=== PATIENT | male | born 1985 | race African-American/Black ===

== ENCOUNTER 2024-05-22 04:46 | Outpatient (CLI) | payer OTHER, SELFPAY | END 2024-05-22 04:47 | disposition home or self-care (01) | PROVIDERS: Visit Provider Family Medicine | DX: R45.851 Suicidal ideations (principal) | CPT/HCPCS: A0425; A0429 ==

== ENCOUNTER 2024-05-22 05:18 | Emergency (ER) | payer OTHER, SELFPAY ==
[2024-05-22 05:33] VITALS: BP 166/109; PULSE 92; RESP 16; TEMP 37.7; O2SAT 98
[2024-05-22] MEDS: LORazepam 1 MG TABLET PO (06:00)
[2024-05-22] MEDS: OLANZapine 5 MG TAB.RAPDIS 10 MG PO (06:00)
--- OUTSIDE RECORDS SUMMARY | 2024-05-22 06:35 | XMS_ITS | Clinical Summary ---
Author Organization [employer] Address [address] [place] [address] Care Team Providers Care Picker Tender Name Role Phone Radha Condon MD Primary Care Provider + [phone] Allergies No known active allergies Medications cholecalciferol (VITAMIN D3) 1,000 unit tablet Take 1,000 units by mouth once daily. 04/12/2024 Active cholecalciferol (VITAMIN D3) 1,000 unit tabletIndicatio ns:Vitamin D deficiency Take 1 Tablet (1,000 units) by mouth once daily. 30 Tablet 04/21/2024 Active hydrOXYzine HCL (ATARAX) 25 mg tabletIndicatio ns:Mood disorder Take 1 Tablet (25 mg) by mouth every 4 hours if needed for Anxiety. 60 Tablet 04/21/2024 10:04 AM AIR CONDITIONING ENGINEER 04/20/2024 Active melatonin 5 mg tab tabletIndicatio ns:Mood disorder Take 1 Tablet (5 mg) by mouth at bedtime. 30 Tablet 04/20/2024 Active FLUoxetine (PROZAC) 40 mg capsuleIndicati ons:Mood disorder Take 1 Capsule (40 mg) by mouth once daily in the morning. 30 Capsule 04/21/2024 10:04 AM AIR CONDITIONING ENGINEER 04/21/2024 Active OLANzapine (ZYPREXA) 20 mg tabletIndicatio ns:Mood disorder,Psycho active substance-induc ed psychosis (HC) Take 1 Tablet (20 mg) by mouth at bedtime. 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 Mood disorder 04/18/2024 Stimulant use disorder 04/18/2024 Encounters Date Type Department Care Team Description 04/17/2024 3:27 PM AIR CONDITIONING ENGINEER - 04/21/2024 1:15 PM AIR CONDITIONING ENGINEER Hospital Encounter [facility] [address] [facility] [place] [address] Group, Psychiatrists Call Geraldo Bah DO Berg, Nicole E, NP Mood disorder (Primary Dx); Psychoactive substance-induced psychosis (HC); Stimulant use disorder; Vitamin D deficiency Discharge Disposition: Home Self Care 04/17/2024 1:16 AM AIR CONDITIONING ENGINEER - 04/17/2024 2:27 PM AIR CONDITIONING ENGINEER Emergency [facility] [address] [place] [address] Sveta Lozano MD Ball, aVnessa Valle MD Delusions (HC) (Primary Dx) Discharge Disposition: Crit Acc Hosp w Planned Readmission 04/17/2024 Travel from Last 3 Months Social History Tobacco Use Types Packs/Day Years Used Date Smoking Tobacco: Every Day Cigarettes Tobacco Cessation:Ready to Q uit: No; Counseling Given: No Alcohol Use Standard Drinks/Week Comments Yes 0.8 (1 standard drink = 0.6 oz p ure alcohol) Social Connections Answer Date Recorded Do you often feel lonely or isolated from those around you? 0 04/17/2024 Financial Resource Strain Answer Date R ecorded Difficulty of Paying Living Expenses 3 04/17/2024 Difficulty of Paying Living Expenses Not on file 04/17/2024 Food Insecurity Answer Date Recorded Do you worry your food will run out before you are able to buy more? 1 04/17/2024 Transportation Needs Answer Date Record ed Does lack of transportation keep you from medica l appointments? 1 04/17/2024 Does lack of transportation keep you from work, meetings or getting things that you need? 1 04/17/2024 Housing Stability Answer Date Recorded What is your housing situation today? 1 04/17/2024 Interpersonal Safety Answer Date Record ed Are you being hit, kicked, p ushed or yelled at (see row info)? No 04/17/2024 Interpersonal Safety Abuse 12 - 18 Not on file 04/17/2024 Interpersonal Safety Ambulatory Vulnerability No t on file 04/17/2024 Utilities Answer Date Recorded Do you have trouble paying f or utilities (for example, heat, electricity, water, phone)? 1 04/17/2024 Sex and Gender Information Value Date Recorded Sex Assigned at Not on file Legal Sex Male 7:15 AM AIR CONDITIONING ENGINEER Gender Identity Not on file Sexual Orientation Not on file Obstetrics History Last Filed Vital Signs Vital Sign Reading Time Taken Comments Blood Pressure 108/80 04/21/2024 9:00 AM AIR CONDITIONING ENGINEER Pulse 76 04/21/2024 9:00 AM AIR CONDITIONING ENGINEER Temperature 36.6 C (97.9 F) 04/21/2024 9:00 AM AIR CONDITIONING ENGINEER Respiratory Rate 16 04/21/2024 9:00 AM AIR CONDITIONING ENGINEER Oxygen Saturation 98% 04/21/2024 9:00 AM AIR CONDITIONING ENGINEER Inhaled Oxygen Concentration - - Weight 73.9 kg (163 lb) 04/17/2024 1:22 AM AIR CONDITIONING ENGINEER Height 170.2 cm (5' 7) 04/17/2024 1:22 AM AIR CONDITIONING ENGINEER Body Mass Index 25.53 04/17/2024 1:22 AM AIR CONDITIONING ENGINEER Plan of Treatment Health Maintenance Due Date Last Done Comments Tdap 10/27/1994 Depression screening for age 12+ 1995 BMI (ht and wt on same day) for age 18+ 10/27/2001 Hepatitis C screening for age 18-79 10/27/2001 Pneumococcal series for age 6-49 (1 of 2 - PCV) 2002 Tetanus booster 2003 Lipids for age 35-44 10/27/2018 COVID-19 vaccine series ( season) Influenza for age 9-49 11/21/2023 HIV for age 15-65 Completed 04/19/2024 Procedures Procedure Name Priority Date/Time Associated Diagnosis Comments TREPONEMA PALLIDUM Today 04/19/2024 8: 30 AM AIR CONDITIONING ENGINEER ANTI HIV 1/2 Today 04/19/2024 8:30 AM AIR CONDITIONING ENGINEER DRUG SCREEN RAPID URINE INHOUSE Today 04/18/2024 4:47 PM AIR CONDITIONING ENGINEER from Last 3 Months Results * TREPONEMA PALLIDUM (04/19/2024 8:30 AM AIR CONDITIONING ENGINEER) TREPONEMA PALLIDUM Non-Reacti ve Non-Reacti ve 04/19/2024 10:56 AM AIR CONDITIONING ENGINEER [facility] Blood BLOOD SPECIMEN / Unknown Butterfly / Unknown 04/19/2024 8:30 AM AIR CONDITIONING ENGINEER 04/19/2024 8:39 AM AIR CONDITIONING ENGINEER Mariah Marsha Pierce CARETAKER RESORT SEND OUTS Final R esult Performing Organization Address City/[facility] Co de Phone Number [facility] [address] [place] [address], * ANTI HIV 1/2 (04/19/2024 8:30 AM AIR CONDITIONING ENGINEER) Pathologist [facility] HIV-1/HIV-2 SCREEN Non-Reacti ve Non-Reacti ve 04/19/2024 10:52 AM AIR CONDITIONING ENGINEER [facility] Comment:HIV-1 p24 and HIV-1/ HIV-2 Ab Not Detected. Blood BLOOD SPECIMEN / Unknown Butterfly / Unknown 04/19/2024 8:30 AM AIR CONDITIONING ENGINEER 04/19/2024 8:39 AM AIR CONDITIONING ENGINEER Mariah Pierce NP SEND OUTS Final R esult Performing Organization Address City/[facility] Co de Phone Number [facility] [address] [place] [address], * (ABNORMAL) DRUG SCREEN RAPID URINE INHOUSE (04/18/2024 4:47 PM AIR CONDITIONING ENGINEER) Pathologist [facility] THC METABOLITES,TOYA L Not Detected Not Detected 04/18/2024 6:04 PM AIR CONDITIONING ENGINEER [facility] PCP,QUAL Not Detected Not Detected 04/18/2024 6:04 PM AIR CONDITIONING ENGINEER [facility] COCAINE,QUAL Not Detected Not Detected 04/18/2024 6:04 PM AIR CONDITIONING ENGINEER [facility] METHAMPHETAMINE , QUALITATIVE Not Detected Not Detected 04/18/2024 6:04 PM AIR CONDITIONING ENGINEER [facility] OPIATES,QUAL Not Detected Not Detected 04/18/2024 6:04 PM AIR CONDITIONING ENGINEER [facility] AMPHETAMINE, QUALITATIVE Non-negative , consider further testing if indicated(A) Not Detected 04/18/2024 6:04 PM [facility] BENZODIAZEPINES ,QUAL Not Detected Not Detected 04/18/2024 6:04 PM [facility] TRICYCLICS,QUAL Not Detected Not Detected 04/18/2024 6:04 PM [facility] METHADONE, QUALITATIVE Not Detected Not Detected 04/18/2024 6:04 PM [facility] BARBITURATES,QU AL Not Detected Not Detected 04/18/2024 6:04 PM [facility] OXYCODONE, QUALITATIVE Not Detected Not Detected 04/18/2024 6:04 PM [facility] BUPRENORPHINE, QUALITATIVE Not Detected Not Detected 04/18/2024 6:04 PM [facility] Urine URINE SPECIMEN / Unknown Non-Blood / Unknown 04/18/2024 4:47 PM [facility] 04/18/2024 5:26 PM [facility] - 04/18/2024 6:04 PM [facility] Please Note: This is a screening test only, all results are unconfirmed and should be used for medical purposes only. Unconfirmed results must not be used for non-medical purposes (e.g., employment testing, legal testing). Suggest analyte specific confirmation for all non-negative results. Specimens will be held for 24 hours if additional testing is needed. The following threshold concentrations are used for this analysis: Drug Screening Threshold Buprenorphine 10 ng/mL PCP 25 ng/mL THC Metabolites 50 ng/mL *Opiates 100 ng/mL Oxycodone 100 ng/mL Cocaine 150 ng/mL Benzodiazepines 150 ng/mL Methadone 200 ng/mL Barbiturates 200 ng/mL Tricyclic Antidepressants 300 ng/mL Amphetamines 500 ng/mL Methamphetamines 500 ng/mL *Includes related compounds: Codeine 50 ng/mL Heroin 100 ng/mL Morphine 100 ng/mL Hydrocodone 400 ng/mL Hydromorphone 800 ng/mL Venlafaxine (Effexor) is a known cross reactant in the PCP assay. If clinically indicated, order PCP confirmation. Geraldo Bah DO URINE Final R esult [facility] SENDOUT [place] ZIP [address] [address] [place] [address] from Last 3 Months Insurance [phone] [employer] [place] [id number] [facility] Advance Directives * Full Code (Latest Code Status on File) Date Activated Date Inactivated Comments 04/18/2024 8:11 AM 04/21/2024 3:54 PM Question Answer Comments Code Status Discussion: Reviewed Preferences * Full Code Date Activated Date Inactivated Comments 04/17/2024 3:49 PM 04/18/2024 8:11 AM Question Answer Comments Code Status Discussion: Unable to Assess Preferences, Provider to review later Care Teams Picker Tender Relationship Specialty Start Date End Date Radha Condon MD 0 [facility] [place] [address] PCP - General 04/17/24
--- OUTSIDE RECORDS SUMMARY | 2024-05-22 06:37 | XMS_ITS | Encounter Summary ---
Author Organization [employer] Address [address] [place] [address] Care Team Providers Care Stope Miner Name Role Phone Radha Condon Primary Care Provider [phone]- [phone] Encounter Details Date Type Department Care Team (Late st Contact Info) Description 04/21/2024 Notes/Orders [facility] [address] [place], [place] [id number] Estephanie Woods, OTR/L [address] [facility] [address] [place] [id number] Social History Tobacco Use Types Packs/Day Years Used Date Smoking Tobacco: Unknown Alcohol Use Standard Drinks/Week Comments Yes 0 (1 standard drink = 0.6 oz pur e alcohol) Humiliation, Afraid, Rape, and Kick questionnair e Answer Date Recorded Fear of Current or Ex-Partner Not on file Within the last year, have y ou been humiliated or emotionally abused in other ways by your partner or ex-partner? No 11/26/2023 Within the last year, have y ou been kicked, hit, slapped, or otherwise physically hurt by your partner or ex-partner? No 11/26/2023 Within the last year, have y ou been raped or forced to have any kind of sexual activity by your partner or ex-partner? No 11/26/2023 Sex and Gender Information Value Date Recorded Sex Assigned at Not on file Legal Sex Male 4:56 AM CDT Gender Identity Not on file Sexual Orientation Not on file documented as of this encounter Progress Notes * Estephanie Woods OTR/Monika - 04/21/2024 4:58 PM CST [facility] Patient failed to attend his hand therapy appointment today. He was supposed to transition from PIPcast to splint and start moving the ring finger PIP joint today (short arc motion to start). Therapist attempted to call him. No answer and unable to leave voicemail message. JEN MurphyR/Monika, CHT #[id number] S OPERATIONS CONSULTANT documented in this encounter Plan of Treatment Upcoming Encounters Date Type Department Care Team (Late st Contact Info) Description 05/26/2024 8:15 AM SALES OPERATIONS CONSULTANT Appointment Specialty [facility] [address] [place] [address]. [place] [address] Kimmie Fuentes MD [address] [place] [address] 06/05/2024 9:00 AM CDT Appointment [facility] [address] [place] [address] Elizabeth Fisher PA-C [address] [place] [address] documented as of this encounter Visit Diagnoses Not on filedocumented in this encounter Care Teams Stope Miner Relationship Specialty Start Date End Date Radha Condon MBBS 0 [facility] [place] [id number] PCP - General Internal Medicine 11/18/23 documented as of this encounter
--- OUTSIDE RECORDS SUMMARY | 2024-05-22 06:37 | XMS_ITS | Encounter Summary ---
Author Organization [employer] Address [address] [place] [address] Care Team Providers Care Registered Vascular Technologist (Rvt) Name Role Phone Radha Condon Primary Care Provider [phone]- [phone] Encounter Details Date Type Department Care Team (Latest Contact Info) Description 11/29/1996 Office Visit Pablo Bowman MD [address] [place], [place] [address] Social History Tobacco Use Types Packs/Day Years Used Date Smoking Tobacco: Never Assessed Sex and Gender Information Value Date Recorded Sex Assigned at Not on file Legal Sex Male 4:56 AM CDT Gender Identity Not on file Sexual Orientation Not on file documented as of this encounter Progress Notes * Pablo Bowman - 11/29/1996 12:00 AM CDTS: Here with concern about a bump on the left knee. Seems to be getting bigger and more painful when he plays basketball. First noticed last week. No med allergies. No other major problems. O: Weight 94 lbs. He does have good flexion and extension of both knees. There is some swelling below the left knee in the tibial tuberosity region. There's no effusion, no redness. Walking without a limp. A: Adriana-Schlatter's condition. P: Natural history of this discussed. Intermittent nature of pain discussed. Cold packs, ibuprofen could be used. Will need to intermittent decrease activities that cause a lot of forceful kicking or jumping maneuvers at the knee. Typically with this type of condition x-ray is not useful in guiding management and so therefore it was elected not to expose him to the radiation of an x-ray today. If he was limping more, if he was developing other changes, if he was developing redness or other problems to call back and that may change our opinion. Note given for school indicating that since he does have this condition, he should be allowed to rest if knee pain develops. cc: documented in this encounter Plan of Treatment Upcoming Encounters Date Type Department Care Team (Late st Contact Info) Description 05/26/2024 8:15 AM TINNING MACHINE SET UP OPERATOR Appointment Specialty [facility] [address] [place] [address]. [place] [address] Kimmie Fuentes MD [address] [place] [address] 06/05/2024 9:00 AM CDT Appointment [facility] [address] [place] [address] Elizabeth Fisher PA-C [address] [place] [address] documented as of this encounter Visit Diagnoses Not on filedocumented in this encounter Care Teams Registered Vascular Technologist (Rvt) Relationship Specialty Start Date End Date Radha Condon MBBS [address] [place] [address] [place] [id number] PCP - General Internal Medicine 11/18/23 documented as of this encounter
--- OUTSIDE RECORDS SUMMARY | 2024-05-22 06:37 | XMS_ITS | Encounter Summary ---
Author Organization [employer] Address [address] [place] [address] Care Team Providers Care Training Technician Name Role Phone Radha oCndon Primary Care Provider [phone]- [phone] Encounter Details Date Type Department Care Team (Latest Contact Info) Description 07/17/1996 Office Visit Denise Heck, OCTAVIO, ROUGH RIB GRADER Social History Tobacco Use Types Packs/Day Years Used Date Smoking Tobacco: Never Assessed Sex and Gender Information Value Date Recorded Sex Assigned at Not on file Legal Sex Male 4:56 AM CDT Gender Identity Not on file Sexual Orientation Not on file documented as of this encounter Progress Notes * Denise Heck - 07/17/1996 12:00 AM CDTS. Pao is here because he has had a sore throat, stuffy nose, and some achiness. Little bit of coughing for the past 3 days. Possible temp. Did have a flu shot in December. Past medical history shows pneumonia 7 months. Mother states he has had perhaps some nasal allergies and/or problem with sinus. Mother will forward his records. He has no allergies, no known allergies to medications. O. Nontoxic, perky 10 year old. HEENT is negative except for mild nasal congestion. Throat is not at all red or exudative. ACN's minimally enlarged, minimally tender. Chest is very clear. Abdomen soft, negative. A. Viral syndrome. P. Symptomatic measures. Rapid strep is negative. Recheck at parental discretion. cc: documented in this encounter Plan of Treatment Upcoming Encounters Date Type Department Care Team (Late st Contact Info) Description 05/26/2024 8:15 AM PRODUCTION PLANNER Appointment Special[facility] [address] [place] [address]. [place] [address] Kimmie Fuentes MD [address] [place] [address] 06/05/2024 9:00 AM CDT Appointment [facility] [address] [place] [address] Elizabeth Fisher PA-C [address] [place] [address] documented as of this encounter Visit Diagnoses Not on filedocumented in this encounter Care Teams Training Technician Relationship Specialty Start Date End Date Radha Condon MBBS [address] [facility] [place] [address] PCP - General Internal Medicine 11/18/23 documented as of this encounter
--- OUTSIDE RECORDS SUMMARY | 2024-05-22 06:37 | XMS_ITS | Encounter Summary ---
Author Organization [employer] Address [address] [facility] [place] [address] Care Team Providers Care Financial Health Counselor Name Role Phone Radha Condon Primary Care Provider +1- [phone] Reason for Visit * Reason Comments Hand Problem Encounter Details Date Type Department Care Team (Late st Contact Info) Description 05/12/2024 Telephone [facility] [address] [facility] [place] [place] [address] Estephanie Woods, OTR/L [address] [place] [address] Hand Problem Social History Tobacco Use Types Packs/Day Years [...] on file documented as of this encounter Nursing Notes * Estephanie Woods OTR/L - 05/12/2024 11:19 AM CST [facility] Patient failed to attend his appointment today. Therapist called, no answer, left message. Remindedof appointment next Wednesday and also reminded of 48 hour cancellation policy. Estephanie Woods MOTR/Monika, CHT #[id number] E MANGER documented in this encounter Plan of Treatment Upcoming Encounters Date Type Department Care Team (Late st Contact Info) Description 05/26/2024 8:15 AM GARDE MANGER Appointment [facility] [address] [place] [address]. [place] [address] Kimmie Fuentes MD [address] [place] [address] 06/05/2024 9:00 AM CDT Appointment [facility] [address] [place] [address] Elizabeth Fisher PA-C [address] [place] [address] documented as of this encounter Visit Diagnoses Not on filedocumented in this encounter Care Teams Financial Health Counselor Relationship Specialty Start Date End Date Radha Condon MBBS [address] [place] [address] [place] [address] PCP - General Internal Medicine 11/18/23 documented as of this encounter
--- OUTSIDE RECORDS SUMMARY | 2024-05-22 06:37 | XMS_ITS | Encounter Summary ---
Author Organization [employer] Address [address] [place] [address] Care Team Providers Care Nurse Practitioner Name Role Phone Radha Condon Primary Care Provider [phone]- [phone] Encounter Details Date Type Department Care Team (Latest Contact Info) Description 03/05/1998 Office Visit Pablo Bowman MD [address] [place], [place] [address] Social History Tobacco Use Types Packs/Day Years Used Date Smoking Tobacco: Never Assessed Sex and Gender Information Value Date Recorded Sex Assigned at Not on file Legal Sex Male 4:56 AM CDT Gender Identity Not on file Sexual Orientation Not on file documented as of this encounter Progress Notes * Pablo Bowman - 03/05/1998 12:00 AM CSTS. See PE form for summary. Summary 1) Good growth and development. Weight 109#. Height 63 1/2. 2) Incomplete vaccination records. The family does not have any records with them. No records available from the school today either. He does need physical form today and shots to get back into basketball. Will give the Hepatitis B, dT and MMR vaccine which appear to be due right now. Will return in about 6 weeks for second hepatitis B vaccine and can update other vaccines as needed, if they are not able to document any other old vaccination records to the school or other clinics. Anticipatpory guidance including no smoking discussed. cc: ITY DEVELOPER documented in this encounter Plan of Treatment Upcoming Encounters Date Type Department Care Team (Late st Contact Info) Description 05/26/2024 8:15 AM CLARITY DEVELOPER [facility]ointment [facility] [address] [place] [address]. [place] [address] Kimmie Fuentes MD [address] [place] [address] 06/05/2024 9:00 AM CDT Appointment [facility] [address] [place] [address] Elizabeth Fisher PA-C [address] [place] [address] documented as of this encounter Visit Diagnoses Not on filedocumented in this encounter Care Teams Nurse Practitioner Relationship Specialty Start Date End Date Radha Condon MBBS [address] [facility] [place] [address] PCP - General Internal Medicine 11/18/23 documented as of this encounter
--- OUTSIDE RECORDS SUMMARY | 2024-05-22 06:37 | XMS_ITS | Encounter Summary ---
Author Organization [facility] Address [address] [place] [address]. [place] [address] Care Team Providers Care Terminal Makeup Operator Name Role Phone Radha Condon MD Primary Care Provider Radha Condon MD Unavailable [phone] David Hernandez MD Unavailable [phone] David Hernandez MD Unavailable David Hernandez MD Unavailable [phone] Dorothy Thompson APRN [facility] Unavailable [phone] Encounter Details Date Type Department Care Team (Late st Contact Info) Description 04/17/2024 MyC Medical Advice [facility] Services - Behavioral Service Line [address] [place] [phone] Chun Seth Social History Tobacco Use Types Packs/Day Years Used Date Smoking Tobacco: Former Cigarettes 1.5 21 0 05/11/1999 - 05/29/2020 Smokeless Tobacco: Former Quit: 05/29/2020 Comments:Started at 16 yrs a ge and was on worsening to 20 Cig/day and last smoked around 04/2022 Alcohol Use Standard Drinks/Week Comments Yes 0 (1 standard drink = 0.6 oz pure alcohol) pt report she had 2 shots yesterday PHQ-2 Answer Date Recorded PHQ-2 Score 2 12/01/2023 Adolescent Education Answer Date Record ed Getting School Help Needed Not on file 12/11 Interpersonal Safety Answer Date Record ed Do you feel physically and e motionally safe where you currently live? Yes 10/01/2023 Within the past 12 months, h ave you been hit, slapped, kicked or otherwise physically hurt by someone? No 10/01/2023 Within the past 12 months, h ave you been humiliated or emotionally abused in other ways by your partner or ex-partner? No 10/01/2023 Sex and Gender Information Value Date Recorded Sex Assigned at Not on file Legal Sex Male 4:50 AM MATCH UP WORKER Gender Identity Male 06/04/2022 7:03 PM CDT Sexual Orientation Not on file documented as of this encounter Plan of Treatment Not on file documented as of this encounter Visit Diagnoses Not on filedocumented in this encounter Additional Health Concerns Assessment Noted Time PHQ-9 Depression Total Score: 5 11/30/19 24 9:54 PM CDT documented as of this encounter Care Teams Terminal Makeup Operator Relationship Specialty Start Date End Date Radha Condon MD [address] [place] [address] [place] [address] PCP - General Internal Medicine 11/07/20 Radha Condon MD [address] [place] [address] [place] [address] Assigned PCP 11/10/20 David Hernandez MD [address] [place] [address] Genetics, Clinical 07/27/22 David Hernandez MD [address] [place] [address] Genetics, Clinical 07/27/22 David Hernandez MD [address] [place] [address] Assigned Pediatric Specialist Provider 09/12/23 05/13/24 Dorothy Thompson APRN BRAKE REPAIR[employer] [address] [place] [address] Assigned Behavioral Health Provider 05/14/24 documented as of this encounter
--- OUTSIDE RECORDS SUMMARY | 2024-05-22 06:37 | XMS_ITS | Encounter Summary ---
Author Organization [facility] Address [address] [place] [address]. [place] [address] Care Team Providers Care Manager Ct Name Role Phone Radha Condon MD Primary Care Provider Radha Condon MD Unavailable [phone] David Hernandez MD Unavailable [phone] David Hernandez MD Unavailable [phone] David Hernandez MD Unavailable [phone] Dorothy Thompson CLERICAL SUPPORT SPECIALIST [facility] Unavailable [phone] Encounter Details Date Type Department Care Team (Late st Contact Info) Description 11/13/2022 [facility] [place] [facility] [address] [facility] [address],[place] [phone] Ryann Oleary Social History Tobacco Use Types Packs/Day Years [...] yesterday PHQ-2 Answer Date Recorded PHQ-2 Score 0 07/16/2022 Sex and Gender Information Value Date Recorded Sex Assigned at Not on file Legal Sex Male 4:50 AM RN REFERRAL Gender Identity Male 06/04/2022 7:03 PM CDT Sexual Orientation Not on file COVID-19 Exposure Response Date Recorded In the last 10 days, have yo u been in contact with someone who was confirmed or suspected to have Coronavirus/COVID-19? No / Unsure 11/09/2022 1:19 PM CDT documented as of this encounter Plan of Treatment Not on file documented as of this encounter Visit Diagnoses Not on filedocumented in this encounter Additional Health Concerns Infection Onset Date Last Indicated Resolved Time Rule Out COVID-19 09/07/2023 09/07/2023 09/07/2023 1:23 PM CDT COVID-19 09/07/2023 09/07/2023 09/18/2023 11:4 0 PM CDT Assessment Noted Time PHQ-9 Depression Total Score: 2 07/17/19 2:35 PM CDT documented as of this encounter Care Teams Manager Ct Relationship Specialty Start Date End Date Radha Condon MD [address] [place] [address] [place] [address] PCP - General Internal Medicine 11/07/20 Radha Condon MD [address] [place] [address] [place] [address] Assigned PCP 11/10/20 David Hernandez MD [address] [place] [address] Genetics, Clinical 07/27/22 David Hernandez MD [address] [place] [address] Genetics, Clinical 07/27/22 David Hernandez MD [address] [place] [id number] Assigned Pediatric Specialist Provider 09/12/23 05/13/24 Dorothy Thompson APRN WOOLING MACHINE OPERATOR [address] [facility] [place] [address] Assigned Behavioral Health Provider 05/14/24 documented as of this encounter
--- OUTSIDE RECORDS SUMMARY | 2024-05-22 06:37 | XMS_ITS | Encounter Summary ---
Author Organization [facility] Address [address] [place] [address]. [place] [address] Care Team Providers Care Pet Walker Name Role Phone Radha Condon MD Primary Care Provider Radha Condon MD Unavailable David Hernandez MD Unavailable [phone] David Hernandez MD Unavailable David Hernandez MD Unavailable [phone] Dorothy Thompson APRN [facility] Unavailable Encounter Details Date Type Department Care Team (Late st Contact Info) Description 11/13/2022 [facility] [place] [facility] [address] [facility] [place] [phone] David Henrandez MD [address] [place], [place] [id number] Social History Tobacco Use Types Packs/Day Years [...] on file Legal Sex Male 4:50 AM TRANSPORTATION AID Gender Identity Male 06/04/2022 7:03 PM CDT [...] Time PHQ-9 Depression Total Score: 2 07/17/19 23 2:35 PM CDT documented as of this encounter Care Teams Pet Walker Relationship Specialty Start Date End Date Radha Condon MD [address] [place] [address] [place] [address] PCP - General Internal Medicine 11/07/20 Radha Condon MD [address] [place] [address] [place] [address] Assigned PCP 11/10/20 David Hernandez MD [address] [place], [place] [address] MD Yeung, Clinical 07/27/22 David Hernandez MD [address] [place] [address] MD Yeung, Clinical 07/27/22 David Hernandez MD [address] [place] [address] Assigned Pediatric Specialist Provider 09/12/23 05/13/24 Dorothy Thompson APRN [facility] [address] [place] [address] Assigned Behavioral Health Provider 05/14/24 documented as of this encounter
--- OUTSIDE RECORDS SUMMARY | 2024-05-22 06:37 | XMS_ITS | Encounter Summary ---
Author Organization [facility] Address [address] [place] [address] Care Team Providers Care Medical Language Specialist Name Role Phone [facility] Primary Care Provider No Ref-Primary, Physician Primary Care Provider Radha Condon MD Primary Care Provider [phone] Radha Condon MD Unavailable [phone] David Hernandez MD Unavailable [phone] David Hernandez MD Unavailable [phone] David Hernandez MD Unavailable [phone] Dorothy Thompson SOLAR ENERGY SYSTEMS DESIGNER BOMB LOADER Unavailable Encounter Details Date Type Department Care Team (Latest Contact Info) Description 1985 External Order Results [facility] [address] [place] [address] Outside, Provider Non-traumatic rhabdomyolysis; Encounter for nonprocreative genetic counseling Social History Tobacco Use Types Packs/Day Years Used Date Smoking Tobacco: Never Assessed Sex and Gender Information Value Date Recorded Sex Assigned at Not on file Legal Sex Male 4:50 AM SENIOR ENLISTED ADVISOR Gender Identity Male 06/04/2022 7:03 PM CDT Sexual Orientation Not on file documented as of this encounter Plan of Treatment Not on file documented as of this encounter Procedures Procedure Name Priority Date/Time Associated Diagnosis Comments LABORATORY MISCELLANEOUS ORDER Routine 12/19/2022 12:00 AM CDT Non-traumatic rhabdomyolysis Encounter for nonprocreative genetic counseling documented in this encounter Results * (ABNORMAL) Other Laboratory; [facility]; Sendout Rhabdomyolysis and Metabolic Myopathy Panel to [facility] (Laboratory Miscellaneous Order) (12/19/2022 12:00 AM CDT) Buccal swab 12/19/2022 us David Hernandez MD LAB - BLOOD ORDERABLES Final Result NISHANTEZE PFT documented in this encounter Visit Diagnoses Diagnosis Non-traumatic rhabdomyolysis Encounter for nonprocreative genetic counseling documented in this encounter Additional Health Concerns Infection Onset Date Last Indicated Resolved Time Rule Out COVID-19 10/03/2019 10/03/2019 10/04/2019 10:55 PM CDT Rule Out COVID-19 01/16/2020 01/16/2020 01/17/2020 3:31 PM CDT COVID-19 10/24/2020 10/24/2020 11/14/2020 11:3 9 PM CDT Recovered COVID 10/29/2020 10/29/2020 01/12/2021 1 1:41 PM CDT Recovered COVID 07/01/2022 07/01/2022 09/14/2022 1 1:39 PM CDT Rule Out COVID-19 09/07/2023 09/07/2023 09/07/2023 1:23 PM CDT COVID-19 09/07/2023 09/07/2023 09/18/2023 11:4 0 PM CDT documented as of this encounter Care Teams Medical Language Specialist Relationship Specialty Start Date End Date [facility] PCP - General 07/05/11 10/02/19 No Ref-Primary, Physician PCP - General 10/03/19 11/06/20 Radha Condon MD [address] [place] [address] [address] [place], [place] [address] PCP - General Internal Medicine 11/07/20 Radha Condon MD [address] [facility] [place] [address] Assigned PCP 11/10/20 David Hernandez MD [address] [place] [address] Genetics, Clinical 07/27/22 David Hernandez MD [address] [place] [address] Genetics, Clinical 07/27/22 [place] [address] [place] [address] Assigned Pediatric Specialist Provider 09/12/23 05/13/24 Dorothy Thompson APRN BOMB LOADER [address] [place] [address] Assigned Behavioral Health Provider 05/14/24 documented as of this encounter
--- OUTSIDE RECORDS SUMMARY | 2024-05-22 06:37 | XMS_ITS | Encounter Summary ---
Author Organization [facility] Address [address] [place] [address] Care Team Providers Care Reaming Machine Operator Name Role Phone Radha Condon Primary Care Provider [phone] Reason for Visit * Reason Comments Follow-up Encounter Details Date Type Department Care Team (Late st Contact Info) Description 05/08/2024 10:00 AM SENIOR INFORMATICA DEVELOPER Office Visit [facility] [address] [place] [address] Elizabeth Fisher PA-C [address] [place] [address] Partial traumatic amputation of left index finger through phalanx, subsequent encounter (HRC) (Primary Dx); Closed displaced fracture of distal phalanx of left ring finger with delayed healing, subsequent encounter; Work related injury Social History Tobacco Use Types Packs/Day Years [...] as of this encounter Progress Notes * Elizabeth Fisher PA-C - 05/08/2024 10:00 AM CST Images from the original note were not included. 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 right-hand dominant male presenting to occupational medicine today for evaluation of partial amputation of the left index finger and avulsion fracture of the phalanx of the left ring finger starting on 11/17/2023. The patient was last seen in Occupational Medicine Clinic on 03/20/2024 by myself. Please refer to previous notes for details of his presentation and course. Since last visit: Continues with hand therapy Today, the patient reports that his left hand is continuing to do better. He also feels better overall. He notes that he started an antidepressant, which has helped with his mental health, which was significantly worsened following his injury. However, he notes that the mmeox-oz-slioji of his left fingers have not significantly improved in the past few months. Pain is 4/10 in severity and sharp in nature, and most often occurs when pressure is applied to the tip of the left index finger, or hisfingers are flexed or extended forcibly. Rest, heat, breaks do help alleviate pain. He has a splinton the ring finger of the left hand, which he wears approximately 80% of the time. He does take it off occasionally to do aetru-zl-xtfrkc exercises. Pain is exacerbated by heavy lifting, cold air, extensive pressure, attempts at making a normal fist, and attempts of lifting anything heavy in the left hand. Please see below for MACI and summary of treatment MACI: Mr. Cherry was using a drill at work when his glove got caught in the drill in his 2nd and 3rdfingers were injured. All fingers of the left hand were initially pointing in different directions,but realigned by the time he presented to the emergency department. The distal tip of the left pointer finger was amputated, and he did place the fingertip on ice prior to being transported to the emergency department. 11/18/2023: Seen in [facility] Emergency Department. Notable amputation to the distal pointerfinger of the left hand and laceration to the medial aspect of the 3rd finger of the left hand. Radiographs were performed in hand surgery was consulted. Tetanus was updated. Hand surgery performed the amputation revision in the emergency department, as well as laceration repair. Discharged on Keflex. 11/20/2023: Seen in [facility] Emergency Department requesting pain management assistance andwound care. Discussed pain management, prescription for oxycodone was written, and referral placed to plastic surgeries for follow up. 11/26/2023: [facility] in [facility] Department for evaluation of continued pain to the left hand.Noted that he took his Keflex every 4 hours and ran out after 5 days, as opposed to taking it 4 times daily for 7 days. No infection noted. Given Toradol, repeat digit block, and additional antibiotics, as well as a limited amount of oral oxycodone per Plastic surgery recommendations. 11/29/2023: Seen in clinic by hand surgery. Recommended continue daily cleansing of the finger withwarm water and soap, applying antibiotic ointment, Xeroform, soft dressing, and an Alumafoam splint. Left ring finger placed in a dorsal blocking splint. 12/06/2023: Seen for follow up in hand surgery. Recommended to start occupational therapy for hand exercises and custom brace. Recommendation to continue cleaning and covering the amputation site. 12/22/2023: Seen for follow up in hand surgery. Notable improvement in symptoms. Recommended to discontinue finger splint on ring finger, continue to work with hand therapy on motion exercises and scar and edema management. Silicone tip offered for the amputation. 01/19/2024: Ultrasound of left ring finger performed. Intact FDS and FDP tendons. Some concern for chronic tear of the extensor tendon overlying the proximal phalanx. 01/24/2024: Seen in hand surgery for follow up. Noting ring finger most bothersome in regards to tenderness and stiffness. Recommendation to continue to work with hand therapy. Order placed for work hardening. 03/08/2024: Seen for follow up in hand surgery. Noting improvement in physical symptoms. Referral placed to occupational medicine. Work note written for light duty or desk top duty with a lifting restriction of 10 lb for the left hand. Behavioral health consult was placed given patient mood suffering from trauma related to the injury. 03/20/2024: Seen for initial appointment in occupational medicine. Noting ongoing pain in all fingers of the left hand, worse so with the PIP joint of the left index finger. Pain is 5/10 in severity and sharp and achy in nature. Pain is exacerbated by heavy lifting, excessive flexion of the fingersof the left hand, and repetitive movements of the left hand. He feels he is at about 60% of his pre-injury ability. He states he has done some very light duty tasks for his personal business, and notes that he is needing to relearn how to do certain tasks. For example, he has been relearning how toproperly hold power tools in his left hand. He notes ongoing mood changes related to his work-related injury. He has been having significant mental distress both due to the injury and the prolonged recovery. He has been seen for an intake at [facility], and they did recommend additional sessions. 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 Adverse Drug Reactions: Other Social History: Marital status: Single. Mr. Cherry reports current alcohol use. He reports current drug use. Drug: Methamphetamines. Review of Systems (cardiac, neurologic, respiratory, endocrine, gastrointestinal, genito-urinary, rheumatologic, integumentary, constitutional, sensory, sensory, hematologic, coagulation, immunoregulatory, psychological) has been reviewed by me. Pertinent findings except as above in HPI: None and is otherwise negative. Paper intake questionnaire reviewed . Objective: General: Mr. Cherry is a male who is in no acute distress Head: normocephalic, facial movements symmetric, expression animated, appropriate, Without scarring or obvious asymmetry Eyes: movements are normal with pupils normal in diameter in ambient light and with normal colored sclerae. ENT: no obvious difficulty hearing, normal lip color. Respiratory: normal configuration of chest and abdomen and normal breathing, without use of accessory muscles. Cardiovascular: No obvious pallor. Neck: No external deformity. Back: Normal to inspection. Musculoskeletal: Seated posture and movement are normal. No difficulty standing up from a chair. Upper extremities: No amputations or no gross abnormalities of movement, clubbing, pallor, no joint deformities. No swelling or edema. Left Hand - thumb, index, middle, ring, and small: - Dominance: Right - Inspection: no swelling, no erythema, no ecchymosis. Thenar eminence muscle contours: Normal, Hypothenar eminence muscle contour: Normal. He is missing the distal tip of the left index finger. The left ring finger is casted over the PIP joint. PIP joints appear swollen across digits 2 through 5 on the left hand. - Palpation: Mildly tender diffusely, pain more pronounced with flexion/extension of the fingers - ROM: Flexion: impaired. Extension: impaired. Abduction: full.Opposition: full, Pronation: full, Supination: full. - Strength: Hand college president: 4, Finger flexion: 4, Finger extension: 5 (norm), - Vascular: Warm, well perfused, cap refill in digits < 2 secs - Neuro: Sensation to light touch over the radial, ulnar, and median nerve distributions are normaland symmetric. Lower extremities: Normal positioning and appearance of both legs with no asymmetry of spontaneous motion. No swelling or edema. Skin: intact visible skin Neurological: Alert, coherent, with normal speech articulation and content. Psychiatric: Affect normal, pleasant and cooperative. Imaging: XR Finger Lt Ring 2+ Views Details Reading Physician Reading Date Result Priority Umair Jessica DO [phone] 12/23/2023 Narrative & Impression EXAM: XR FINGER LT RING 2+ VIEWS, XR FINGER LT MIDDLE 2+ VIEWS [facility] DATE: 12/22/2023 INDICATION: Fracture follow up, Unspecified fracture of left wrist and h COMPARISON: 12/06/2023 IMPRESSION: Partial progressive incomplete healing of a comminuted mildly displaced fracture of thefourth distal phalanx. Partial amputation of the second digit through the head/neck of the middle phalanx. 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 Assessment: 1. 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 Closed displaced fracture of distal phalanx of left ring finger with delayed healing, subsequentencounter 3. Work related injury Plan: Pao Cherry is a 38 y.o. right-hand dominant male presenting to occupational medicine today for evaluation of partial amputation of the left index finger and avulsion fracture of the phalanx of the left ring finger starting on 11/17/2023. Based on his history, this is a work-related injury. He hasbeen seen and treated by Orthopedics and hand therapy. Orthopedics has transferred responsibility for work restrictions to Occupational Medicine at this time. Recommend the following: Continue with behavioral therapy. Mood changes appear to have been significant based on initial interview with patient, and he would benefit greatly from continued talk therapy Follow up with hand specialist in orthopedics as scheduled If orthopedics degrees, could start work hardening after his next 2 sessions of hand therapy. However, orthopedics should have final say in this. Work restrictions as below Medications: Medications Prescribed this Visit None Discussed common medication side effects. Referral: Cont hand therapy Work Restrictions: Per workability of 05/08/2024 Upper Extremity Abilities: [] RIGHT [x] LEFT [] BOTH [x] No Lifting > 25 lbs with the affected limb Employee is able to: Never Rare <10% Occas 11-33% Freq 34-66% Cont 67-100% Light grasp [] [] [] [x] [] Heavy grasp [] [] [x] [] [] Repetitive wrist motion [] [] [] [] [x] Torque/crimp [] [] [x] [] [] Keyboard / write [] [] [] [] [x] Operate power tools [] [] [] [x] [] Pinch [] [x] [] [] [] - Must be allowed to attend medical appointments - Occasional working at positions of height Followup: 6 weeks, sooner if needed The patient was discharged ambulatory and in stable condition. Elizabeth Fisher PA-C Occupational Medicine I spent a total of 30 minutes with this patient more than 50% in face to face counseling and care coordination. This note was created using templating and voice recognition software (FL3XX Direct) which may result in unintentional word substitutions. OR INFORMATICA DEVELOPER documented in this encounter Plan of Treatment Upcoming Encounters Date Type Department Care Team (Late st Contact Info) Description 05/26/2024 8:15 AM SENIOR INFORMATICA DEVELOPER Appointment [facility] [place] [address] [facility] [address] [place] [address]. [place] [address] Kimmie Fuentes MD [address] [place] [address] 06/05/2024 9:00 AM CDT Appointment [facility] [address] [place] [address] Elizabeth Fisher PA-C [address] [place] [address] documented as of this encounter Visit Diagnoses Diagnosis Partial traumatic amputation of left index finger through phalanx, subsequent encounter (HRC)- Primary Closed displaced fracture of distal phalanx of left ring finger with delayed healing, subsequent encounter Work related injury Injury, other and unspecified, unspecified site documented in this encounter Care Teams Reaming Machine Operator Relationship Specialty Start Date End Date Radha Condon MBBS [address] [place] [address] [place] [address] PCP - General Internal Medicine 11/18/23 documented as of this encounter
--- OUTSIDE RECORDS SUMMARY | 2024-05-22 06:37 | XMS_ITS | Encounter Summary ---
Author Organization [facility] Address [address] [facility] [place] [address] Care Team Providers Care Inspector Salvage Name Role Phone Radha Condon MD Primary Care Provider [phone] Radha Condon MD Unavailable [phone] David Hernandez MD Unavailable [phone] David Hernandez MD Unavailable [phone] David Hernandez MD Unavailable [phone] Encounter Details Date Type Department Care Team (Latest Contact Info) Description 05/01/2024 Travel Social History Tobacco Use Types Packs/Day Years [...] on file Legal Sex Male 4:50 AM CORD SPLICER Gender Identity Male 06/04/2022 7:03 PM CDT Sexual Orientation Not on file documented as of this encounter Plan of Treatment Not on file documented as of this encounter Visit Diagnoses Not on filedocumented in this encounter Additional Health Concerns Assessment Noted Time PHQ-9 Depression Total Score: 5 11/30/19 24 9:54 PM CDT documented as of this encounter Care Teams Inspector Salvage Relationship Specialty Start Date End Date Radha Condon MD [address] [place] [address] [place] [id number] PCP - General Internal Medicine 11/07/20 Radha Condon MD [address] [place] [address] [place] [id number] Assigned PCP 11/10/20 David Hernandez MD [address] [place] [address] Genetics, Clinical 07/27/22 David Hernandez MD [address] [place] [address] Genetics, Clinical 07/27/22 David Hernandez MD [address] [place] [id number] Assigned Pediatric Specialist Provider 09/12/23 05/13/24 documented as of this encounter
--- OUTSIDE RECORDS SUMMARY | 2024-05-22 06:37 | XMS_ITS | Encounter Summary ---
Author Organization [facility] Address [address] [place] [id number] Care Team Providers Care Matrix Plater Name Role Phone Radha Condon MD Primary Care Provider Radha Condon MD Unavailable David Hernandez MD Unavailable [phone] David Hernandez MD Unavailable David Hernandez MD Unavailable [phone] Dorothy Thompson [employer] ASSISTANT [facility] Unavailable Encounter Details Date Type Department Care Team (Late st Contact Info) Description 09/15/2023 [facility] [address] [id number] Social History Tobacco Use Types Packs/Day Years [...] Answer Date Recorded PHQ-2 Score 0 07/16/2022 Adolescent Education Answer Date Record ed Getting School Help Needed Not on file 12/11 Sex and Gender Information Value Date Recorded Sex Assigned at Not on file Legal Sex Male 4:50 AM COM WRITER Gender Identity Male 06/04/2022 7:03 PM CDT Sexual Orientation Not on file documented as of this encounter Plan of Treatment Not on file documented as of this encounter Visit Diagnoses Not on filedocumented in this encounter Additional Health Concerns Infection Onset Date Last Indicated Resolved Time COVID-19 09/07/2023 09/07/2023 09/18/2023 11:4 0 PM CDT Assessment Noted Time PHQ-9 Depression Total Score: 2 07/17/19 23 2:35 PM CDT documented as of this encounter Care Teams Matrix Plater Relationship Specialty Start Date End Date Radha Condon MD [address] [place] [address] [place] [address] PCP - General Internal Medicine 11/07/20 Radha Condon MD [address] [place] [address] [place] [address] Assigned PCP 11/10/20 David Hernandez MD [address] [place] [address] Genetics, Clinical 07/27/22 David Hernandez MD [address] [place] [address] Genetics, Clinical 07/27/22 David Hernandez MD [address] [place] [id number] Assigned Pediatric Specialist Provider 09/12/23 05/13/24 Dorothy Thompson APRN POULTRY PICKING MACHINE TENDER [address] [place] [address] Assigned Behavioral Health Provider 05/14/24 documented as of this encounter
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
--- OUTSIDE RECORDS SUMMARY | 2024-05-22 06:37 | XMS_ITS | Encounter Summary ---
Author Organization [facility] Address [address] [place] [address]. [place] [address] Care Team Providers Care Head Grinder Name Role Phone Radha Condon MD Primary Care Provider [phone] Radha Condon MD Unavailable David Hernandez MD Unavailable David Hernandez MD Unavailable David Hernandez MD Unavailable [phone] Dorothy Thompson APRN [facility] Unavailable [phone] Encounter Details Date Type Department Care Team (Late st Contact Info) Description 11/10/2022 MyC Medical Advice [facility] [address] [facility] [place] [phone] David Hernandez MD [address] [place], [place] [id number] Social History Tobacco Use Types Packs/Day Years [...] on file Legal Sex Male 4:50 AM BUGGY LADLE TENDER Gender Identity Male 06/04/2022 7:03 PM CDT [...] documented as of this encounter Care Teams Head Grinder Relationship Specialty Start Date End Date Radha Condon MD [address] [place] [address] [place] [address] PCP - General Internal Medicine 11/07/20 Radha Condon MD [address] [place] [address] [place] [address] Assigned PCP 11/10/20 David Hernandez MD [address] [place], [place] [address] MD Yeung, Clinical 07/27/22 David Hernandez MD [address] [place] [address] MD Yeung, Clinical 07/27/22 David Hernandez MD [address] [place] [address] Assigned Pediatric Specialist Provider 09/12/23 05/13/24 Dorothy Thompson APRN [facility] [address] [place] [address] Assigned Behavioral Health Provider 05/14/24 documented as of this encounter
--- OUTSIDE RECORDS SUMMARY | 2024-05-22 06:37 | XMS_ITS | Encounter Summary ---
Author Organization [facility] Address [address] [place] [address] Care Team Providers Care Medical Insurance Verifier Name Role Phone Radha Condon Primary Care Provider [phone] Reason for Visit * Reason Comments Hand Problem * Therapies (Routine) - Authorized Specialty Diagnoses / Procedures Referred By Elyssa t Referred To Contact Diagnoses Closed fracture of multiple bones of left hand, initial encounter Estephanie Matson PA-C [address] [place] [address] Phone: tel: fax: Referral ID Status Reason Start Date Expiration Date V isits Requested Visits Authorized [id number] Authorized 12/06/2023 12/05/2024 20 20 Encounter Details Date Type Department Care Team (Late st Contact Info) Description 05/05/2024 9:00 AM LOCAL SALES ASSOCIATE Office Visit [facility] [address] [place] [address] Estephanie Woods, OTR/L [address] [facility] [place] [id number] Stiffness of finger joint of left hand (Primary Dx); Amputation of index finger, traumatic (HRC); Closed nondisplaced fracture of distal phalanx of left ring finger with routine healing, subsequent encounter Social History Tobacco Use Types Packs/Day Years [...] of this encounter Progress Notes * Estephanie Woods, OTR/Monika - 05/05/2024 9:00 AM CST Hand Occupational Therapy - Progress Note Referring provider: Estephanie Matson PA-C Diagnosis: Left degloving index finger s/p revision amputation, Ring finger distal phalanx fractureand PIP avulsion fracture, Long and Small finger PIP pain 1. Revision left index finger partial amputation through DIP joint, healing laceration to long finger 2. Left ring distal phalanx fracture and ring PIP avulsion fx, possibly secondary to dislocation 3. Left small finger and middle finger PIP pain Orders: Evaluation and treatment. Verbal orders from [facility] 12/31/2023 (after therapy): Ok for PROM of all fingers including the ring and ok to start putty strengthening. New orders 01/24/24: Custom Splint(Plastic/ORTHO only) Finger, other relative motion splint Verbal orders from [facility] 02/03/24: Ok for serial casting at the ring finger PIP joint for 8 weeks. Date of onset: 11/18/23 Cause: Work related - glove got caught in the rotation of a drill. Date of surgery: 11/18/23 Surgery: Revision partial amputation of left index finger at DIP joint PMH/Precautions: The patient's PMH was reviewed in [facility]. Refer to EMR for past medical history, medications, drug allergies and precautions. Reviewed. 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 Living situation: The patient lives independently. Hobbies/leisure/sports: Daughter is 19 months old. Reading. Working out. Riding bikes and motorcycles. Sports. Functional limitations: Gripping, pinching, carrying, lifting, work/leisure activities, ADL's. Ring finger PIP castin weeks through 04/21/24 (pt did not return until 05/05 so we casted until that date) SUBJECTIVE: Pao Cherry is 5 1/2 months post-operative. He arrived with ring PIP cast on his finger. Today we will change that to a splint and start short arc motion. He arrived late but was able to be accommodated for a full visit. We had a brief discussion about the future of treatment. Work conditioning has been inquiring with this therapist about when he will be discharged from hand therapy and they can schedule work conditioning. We discussed keeping the 2 upcoming hand therapy visits and then possible transitioning to work conditioning. Patient will discuss with providers at upcoming Occ Med and Ortho appointments. Also reminded of cancellation policy for no shows and late cancels. OBJECTIVE: 05/05/2024: Ring PIP was 28 degrees in cast (compared to 65 at start of casting). No other measurements taken today. Previous: Pain: Feels stiff, arthritic Sensation: Sensation is disrupted at tip of index. Incision/Scar: Well healed. Edema: Mild in hand. Circumferential measurements: Right 02/22/2024 Left 02/22/2024 Middle P1 6.0 6.3 Middle PIP 6.5 6.9 AROM: AROM 02/22/2024 Index Middle Ring Small MCP Extension/Flexion 0/90 0/92 0/90 0/100 PIP Extension/Flexion 25/60 30/75 65/80 40/65 DIP Extension/Flexion - 0/50 0/20 0/65 Strength: Right 01/28/2024 Left 02/22/2024 Transit Department Clerk, elbow at 90 degrees 120 lbs 25 lbs Left 02/02/2024 Lateral pinch 12 lbs Palmar pinch 7 lbs TREATMENT INTERVENTION: Paraffin Bath Modality CPT 27854 (5 minutes untimed) Paraffin applied to involved fingers before treatment. Therapeutic Exercise CPT 21903 (10 minutes) Educated on slowly weaning from splint over the next few weeks. He should monitor for droop. Educated on short arc motion (flexion) at ring PIP joint. He should monitor for droop. Therapist performed PROM index and middle flexion, and ring PIP extension while paraffin was applied. Application of Finger Splint/Orthosis CPT 60855 (15 minutes untimed) A custom thermoplastic finger-based PIP extension splint/orthosis was fabricated for the patient's ring finger. Reviewed splint/orthosis care. Patient was intstructed to wear splint continuously, butmay remove for hygiene and prescribed exercises. Gradual weaning of splint over next few weeks. Patient can don and doff splint/orthosis independently. Timed Code Treatment Minutes: 10 Total Treatment Minutes: 30 ASSESSMENT: Good response to casting; we will have to wean slowly from cast in order to avoid extensor lag. Functional goals: -The patient will be able to manage self-care ADLs with minimal to no difficulty in 2 weeks. -The patient will be able to return to work with minimal to no difficulty in 8 weeks. PLAN: Next treatment session: Check response to splint weaning and short arc motion. Continue A/PROM and strengthening. Modalities as appropriate. Visit frequency/duration: Two more visits in April and then likely transition to Work Conditioning (to be discussed with referring provider). Anticipate 18 visits. Treatment plan: Patient education and training, splint/orthosis, pain management, A/AA/PROM, strengthening, edema and scar management, manual therapy and modalities as appropriate. Therapist Signature: EVI Murphy, [facility] #[id number] Visit #16 Payor: [employer] WC / Plan: [employer] WC / Product Type: Workers Comp / QRC: Nikki Kirkland, Fax received from [employer] dated 05/08/24 authorizing 5 OT visits. This was passed along to [employer] work comp department and sent to [employer]. L SALES ASSOCIATE L SALES ASSOCIATE documented in this encounter Plan of Treatment Upcoming Encounters Date Type Department Care Team (Late st Contact Info) Description 05/26/2024 8:15 AM LOCAL SALES ASSOCIATE [facility]ointment [facility] [address] [place] [address]. [place] [address] Kimmie Fuentes MD [address] [place] [address] 06/05/2024 9:00 AM CDT Appointment [facility] [address] [place] [address] Elizabeth Fisher PA-C [address] [place] [address] documented as of this encounter Visit Diagnoses Diagnosis Stiffness of finger joint of left hand- Primary Amputation of index finger, traumatic (HRC) Closed nondisplaced fracture of distal phalanx of left ring finger with routine healing, subsequent encounter documented in this encounter Care Teams Medical Insurance Verifier Relationship Specialty Start Date End Date Radha Condon MBBS 0 [facility] [place] [address] PCP - General Internal Medicine 11/18/23 documented as of this encounter
--- OUTSIDE RECORDS SUMMARY | 2024-05-22 06:37 | XMS_ITS | Encounter Summary ---
Author Organization [facility] Address [address] [place] [address] Care Team Providers Care Color Receiver Name Role Phone Radha Condon Primary Care Provider [phone] Reason for Visit * Reason Comments Hand Problem * Therapies (Routine) - Authorized Specialty Diagnoses / Procedures Referred By Elyssa t Referred To Contact Diagnoses Closed fracture of multiple bones of left hand, initial encounter Estephanie Matson PA-C [address] [place] [address] Phone: tel: fax: Referral ID Status Reason Start Date Expiration Date V isits Requested Visits Authorized [id number] Authorized 12/06/2023 12/05/2024 20 20 Encounter Details Date Type Department Care Team (Late st Contact Info) Description 04/12/2024 9:30 AM SOFTWARE PUBLISHER Office Visit [facility] [address] [place] [address] Estephanie Woods, OTR/L [address] [facility] [place] [id number] Stiffness of finger joint of left hand [...] Progress Notes * Estephanie Woods, OTR/Monika - 04/12/2024 9:30 AM CST Hand Occupational Therapy - Progress [...] PMH/Precautions: The patient's PMH was reviewed in [facility]. Refer to EMR for past medical history, medications, drug allergies and precautions. Reviewed. 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 Living situation: The patient lives independently. Hobbies/leisure/sports: Daughter is 19 months old. Reading. Working out. Riding bikes and motorcycles. Sports. Functional limitations: Gripping, pinching, carrying, lifting, work/leisure activities, ADL's. Ring finger PIP castin weeks through 04/21/24 SUBJECTIVE: Pao Cherry is almost 5 months post-operative. He is here for a cast change today. Of note, therapist called [facility] Work Comp department again today (left message) to make sure 03/18/24 therapy visit is billed to and not private insurance. 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 Manual Therapy CPT 95705 (10 minutes) Therapist performed PROM for ring PIP extension before cast. After cast applied to ring, therapist performed PROM for index and middle finger flexion (kept castfree of paraffin). Reviewed and performed ring finger DIP passive flexion while in cast. Apply Cast Finger, CPT 60948 (15 minutes untimed) A custom finger cast was fabricated for patient using soft cast material. The ring finger PIP jointwas placed in as much extension as possible while allowing for full DIP motion. Need for compliancewith continuous cast wearing protocol was emphasized. The patient was instructed to return for weekly cast changes to try to increase extension. Timed Code Treatment Minutes: 10 Total Treatment Minutes: 35 ASSESSMENT: Great response to casting with significantly increased extension of ring finger PIP joint. We will have to wean slowly from cast. Functional goals: -The patient will be able to manage self-care ADLs with minimal to no difficulty in 2 weeks. -The patient will be able to return to work with minimal to no difficulty in 8 weeks. PLAN: Next treatment session: Serial casting of the ring PIP joint. Continue A/PROM and strengthening. Modalities as appropriate- continue US combined with stretch to index and middle. Visit frequency/duration: Weekly visits for cast changes through 04/21/24, then slow weaning from ring PIP immobilization. Up to 20 visits. Treatment plan: Patient education and training, splint/orthosis, pain management, A/AA/PROM, strengthening, edema and scar management, manual therapy and modalities as appropriate. Therapist Signature: EVI Murphy, [facility] #[id number] Visit #15 Payor: [employer] WC / Plan: [employer] WC / Product Type: Workers Comp / QRC: Nikki Kirkland, WARE PUBLISHER documented in this encounter Plan of Treatment Upcoming Encounters Date Type Department Care Team (Late st Contact Info) Description 05/26/2024 8:15 AM SOFTWARE PUBLISHER Appointment [facility] [address] [place] [address]. [place] [address] Kimmie Fuentes MD [address] [place] [address] 06/05/2024 9:00 AM CDT Appointment [facility] [address] [facility] [place] [address] Elziabeth Fisher PA-C [address] [place] [address] documented as of this encounter Visit Diagnoses Diagnosis Stiffness of finger joint of left hand- Primary Amputation of index finger, traumatic (HRC) Closed nondisplaced fracture of distal phalanx of left ring finger with routine healing, subsequent encounter documented in this encounter Care Teams Color Receiver Relationship Specialty Start Date End Date Radha Condon MBBS [address] [place] [address] [place] [address] PCP - General Internal Medicine 11/18/23 documented as of this encounter
--- OUTSIDE RECORDS SUMMARY | 2024-05-22 06:37 | XMS_ITS | Encounter Summary ---
Author Organization [facility] Address [address] [place] [address] Care Team Providers Care Registry Np Name Role Phone Radha Condon MD Primary Care Provider Radha Condon MD Unavailable David Hernandez MD Unavailable David Hernandez MD Unavailable David Hernandez MD Unavailable [phone] Reason for Visit * Reason Comments Altered Mental Status Mental Health Problem Encounter Details Date Type Department Care Team (Late st Contact Info) Description 04/15/2024 3:27 AM ANIMAL FEEDER - 04/15/2024 2:17 PM [facility] Emergency Dept [address] [place] [address] [phone] Geraldo Arora MD [facility] [address] [place] [address] Ian Epstein MD [facility] [address] [place], [place] [id number] Hallucinations; Agitation Discharge Disposition: Home or Self Care Social History Tobacco Use Types Packs/Day Years [...] on file Legal Sex Male 4:50 AM ANIMAL FEEDER Gender Identity Male 06/04/2022 7:03 PM CDT Sexual Orientation Not on file documented as of this encounter Last Filed Vital Signs Vital Sign Reading Time Taken Comments Blood Pressure 113/73 04/15/2024 2:16 PM ANIMAL FEEDER Pulse 80 04/15/2024 2:16 PM ANIMAL FEEDER Temperature 36.7 C (98 F) 04/15/2024 3:29 AM ANIMAL FEEDER Respiratory Rate 14 04/15/2024 7:00 AM ANIMAL FEEDER Oxygen Saturation 99% 04/15/2024 2:16 PM ANIMAL FEEDER Inhaled Oxygen Concentration - - Weight - - Height - - Body Mass Index - - documented in this encounter Discharge Instructions * Discharge Instructions* Rosa Forbes - 04/15/2024 1:50 PM ANIMAL FEEDER You have been scheduled with the [facility] [place] for a Substance Use Disorder Assessment appointment on Mar at 1030 AM . Please allow up to 90 -120 minutes for your appointment. This is an IN- PERSON appointment. [facility] [place] [address] *Follow the signs to the Emergency Room and park in the Yellow or Red Ramp. You can obtain a reduced parking fee of $2 after your appointment. The office is located next to [facility]. The medical front desk specialist office number is [phone]. Please arrive before your scheduled appointment time, late arrivals are subject to the need to reschedule. Please bring contact names and phone numbers for Emergency Contacts, therapist, psychiatrist, PO, attorneys, or other relevant contacts that may be needed. *Face masking is optional. Please note: Parents must accompany any patient under the age of 18. Any patient under legal guardianship will need to bring court documents. Child/ Adolescent appointments can last up to 120+ minutes. Adult appointments can last up to 90+ minutes. You will receive a phone call 2-4 days prior to your scheduled time to confirm and remind you of the appointment. You will receive intake forms via [email or web address] ([email or web address]) to be completed prior to your appointment. If able, please complete this prior to your appointment to reduce the appt length of time. If you need to change this appointment for any reason, please call our Behavioral Access Schedulingoffice at . Please note, we ask for at least a 24-hour notice. Any late cancelations will be considered a no-show. AL FEEDER AL FEEDER AL FEEDER AL FEEDER * Attachments The following attachments cannot be sent through Care Everywhere. * Anxiety Disorders: General Info (Luxembourger) documented in this encounter Medications at Time of Discharge acetaminophen (TYLENOL) 325 MG tabletIndication s:Non-traumatic rhabdomyolysis,C OVID-19 Take 2 tablets (650 mg) by mouth every 4 hours as needed for mild pain or other (and adjunct with moderate or severe pain or per patient request) 09/08/2023 Biotin 5000 MCG TABS Take 5,000 mcg by mouth daily Lidocaine (LIDOCARE) 4 % PatchIndications :LUQ abdominal pain,Spasm of abdominal muscles Place 1 patch onto the skin every 24 hours To prevent lidocaine toxicity, patient should be patch free for 12 hrs daily. 20 patch 2 10/01/2023 vitamin D3 (CHOLECALCIFEROL ) 50 mcg (2000 units) tablet Take 50 mcg by mouth daily documented as of this encounter Consult Notes * Hakan Chester, HIGH DENSITY PRESS OPERATOR - 04/15/2024 7:15 AM CSTAssociated Order(s): [facility]STIC EVALU[facility] (DEC) ASSESSMENT ORDER Diagnostic Evaluation Consultation Crisis Assessment Patient Name: Pao Cherry Age: [age] year old Legal Sex: male Gender Identity: male Pronouns: Race: Black or Ethnicity: Not or Language: Luxembourger Patient was assessed: In person Crisis Assessment Start Time: 714 Crisis Assessment Stop Time: 804 Patient location: [facility] Emergency Dept ED17 Referral Data and Chief Complaint Pao Cherry presents to the ED via EMS. Patient is presenting to the ED for the following concerns: Significant behavioral change, Anxiety, Paranoia, Depression. Factors that make the mental health crisis life threatening or complex are: Pt is a 38 year old male with a hx of illicit chemical andalcohol use who presents to the ED with reports of anxiety, paranoia, and hallucinations via EMS inthe context of recent chemical use (Adderall). Pt states he completed out-Pt SUDs treatment a little over five years ago and has been sober up until 4 months ago. However, a search of criminal records shows the Pt received a DUI two years prior. 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 Pt states for the past four months following his work accident, he has been struggling with depressed mood, anxiety and relapse with Adderall. Pt denies any thoughts, plans or intent of SI. Pt denies any hx of SI.. Informed Consent and Assessment Methods Explained the crisis assessment process, including applicable information disclosures and limits toconfidentiality, assessed understanding of the process, and obtained consent to proceed with the assessment. Assessment methods included conducting a formal interview with patient, review of medical records, collaboration with medical staff, and obtaining relevant collateral information from familyand community providers when available. : done History of the Crisis Pt reports he attended out-pt SUDs treatment 5 years ago. Pt reports he has two previous in-pt 72 hour hold mental health hospitalizations at [facility] in the past. Pt states his first hospitalization was5 years ago and his second one was on 04/04/24 this year Brief Psychosocial History Family: Single, Children yes Support System: Parent(s) Employment Status: employed full-time Source of Income: salary/wages Financial Environmental Concerns: none Current Hobbies: exercise/fitness, music, spectator events, television/movies/videos Barriers in Personal Life: mental health concerns, other (see comments) (chemical use) Significant Clinical History Current Anxiety Symptoms: racing thoughts, excessive worry, anxious, shortness of breath or racing heart Current Depression/Trauma: apathy, difficulty concentrating, low self esteem, impaired decision making, helplessness, hopelessness, sadness Current Somatic Symptoms: racing thoughts, excessive worry, shortness of breath or racing heart, anxious Current Psychosis/Thought Disturbance: auditory hallucinations (Paranoia) Current Eating Symptoms: Chemical Use History: Alcohol: Other (comments) (Pt received a DUI one year ago.) Benzodiazepines: None Opiates: None Cocaine: None Marijuana: None Other Use: Methamphetamines (Adderall) Last Use:: 04/13/24 Past diagnosis: Anxiety Disorder, Substance Use Disorder, Depression Family history: No known history of mental health or chemical health concerns Past treatment: Individual therapy, Psychiatric Medication Management, Residential Treatment Details of most recent treatment: Pt attended out-pt SUDs treatment 5 years ago. Other relevant history: Have there been any medication changes in the past two weeks: no Is the patient compliant with medications: yes Collateral Information Is there collateral information: Yes Collateral information name, relationship, phone number: Tess Martinez (mother) [phone] What happened today: He has been demonstrating a change in behavior over the past few weeks. He posted on Facebook that his two brothers, ex- and mother of one of his children have all killed him and asked in CoverItLive posts if people would come and help or save him. What is different about patient's functioning: He is paranoid, confused, and hallucinating. He hasnot been sleeping. This has been happening over the past four months. What do you think the patient needs: Has patient made comments about wanting to kill themselves/others: no If d/c is recommended, can they take part in safety/aftercare planning: yes Additional collateral information: Risk Assessment Todd Suicide Severity Rating Scale Full Clinical Version: Suicidal Ideation Q1 Wish to be (Lifetime): No Q2 Non-Specific Active Suicidal Thoughts (Lifetime): No Suicidal Behavior (Lifetime) Actual Attempt (Lifetime): No Has subject engaged in non-suicidal self-injurious behavior? (Lifetime): Yes Interrupted Attempts (Lifetime): No Aborted or Self-Interrupted Attempt (Lifetime): No Preparatory Acts or Behavior (Lifetime): No Todd Suicide Severity Rating Scale Recent: Suicidal Ideation (Recent) Q1 Wished to be (Past Month): no Q2 Suicidal Thoughts (Past Month): no Level of Risk per Screen: no risks indicated Suicidal Behavior (Recent) Actual Attempt (Past 3 Months): No Has subject engaged in non-suicidal self-injurious behavior? (Past 3 Months): No Interrupted Attempts (Past 3 Months): No Aborted or Self-Interrupted Attempt (Past 3 Months): No Preparatory Acts or Behavior (Past 3 Months): No Environmental or Psychosocial Events: work or task failure, helplessness/hopelessness, other life stressors, ongoing abuse of substances Protective Factors: Protective Factors: strong glass to family unit, community support, or employment, lives in a responsibly safe and stable environment, good treatment engagement, sense of importance of health and wellness, able to access care without barriers Does the patient have thoughts of harming others? Feels Like Hurting Others: no Previous Attempt to Hurt Others: no Is the patient engaging in sexually inappropriate behavior?: no Does Patient have a known history of aggressive behavior: No Has aggression occurred as a result of MH concerns/diagnosis: No Does patient have history of aggression in hospital: No Is the patient engaging in sexually inappropriate behavior? no Mental Status Exam Affect: Flat Appearance: Appropriate Attention Span/Concentration: Attentive Eye Contact: Variable Fund of Knowledge: Appropriate Language /Speech Content: Fluent Language /Speech Volume: Soft Language /Speech Rate/Productions: Minimally Responsive Recent Memory: Intact Remote Memory: Intact Mood: Anxious, Depressed, Sad, Apathetic Orientation to Person: Yes Orientation to Place: Yes Orientation to Time of Day: Yes Orientation to Date: Yes Situation (Do they understand why they are here?): Yes Psychomotor Behavior: Underactive Thought Content: Clear Thought Form: Intact Mini-Cog Assessment Number of Words Recalled: Clock-Drawing Test: Three Item Recall: Mini-Cog Total Score: Medication Psychotropic medications: Medication Orders - Psychiatric (From admission, onward) None Current Care Team Patient Care Team: Radha Condon MD as PCP - General (Internal Medicine) Radha Condon MD as Assigned PCP David Hernandez MD as MD (Genetics, Clinical) David Hernandez MD as MD (Genetics, Clinical) David Hernandez MD as Assigned Pediatric Specialist Provider Diagnosis Patient Active Problem List Diagnosis Code Shoulder sprain S43.409A CARDIOVASCULAR SCREENING; LDL GOAL LESS THAN 160 Z13.6 Non-traumatic rhabdomyolysis M62.82 2019 novel coronavirus disease (COVID-19) U07.1 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 Alcohol use disorder, mild, abuse F10.10 Shoulder pain, left M25.512 COVID-19 U07.1 Major depression, recurrent F33.9 Paranoia (H) F22 Psychosis, unspecified psychosis type (H) F29 Primary Problem This Admission Active Hospital Problems Major depression, recurrent Paranoia (H) Psychosis, unspecified psychosis type (H) Clinical Summary and Substantiation of Recommendations Clinical Substantiation: A lower level of care has been unsuccessful in treating and stabilizing patient???s mental health symptoms because of recent chemical use, and ongoing mental health symptoms of depressed mood, anxiety, paranoia and auditory hallucinations. However, with brief observation, monitored therapeutic treatment, and intervention of mental health symptoms in the ED, symptoms may be mitigated with potential for disposition to a less restrictive level of care than an inpatient setting. Patient is not currently on the inpatient worklist. Next steps in care include out-pt referrals for therapy, psychiatry and SUDs assessment. Extended Care will follow, working to address mood stabilization. Goals for crisis stabilization: Mood stabilization Next steps for Care Team: Schedule out-Pt f/u. Treatment Objectives Addressed: identifying an appropriate aftercare plan, identifying additional supports Therapeutic Interventions: Coached on coping techniques/relaxation skills to help improve distress tolerance and managing intense emotions., Reviewed healthy living that supports positive mental health, including looking at sleep hygiene, regular movement, nutrition, and regular socialization. Has a specific means been identified for suicidal/homicide actions: No If yes, describe: Explain action steps toward mitigation: Document completion of mitigation actions: The follow up action still needed prior to discharge: Patient coping skills attempted to reduce the crisis: illicit chemical and alcohol use. Disposition Recommended referrals: Individual Therapy, Medication Management, [facility] Comprehensive Assessment Reviewed case and recommendations with attending provider. Attending Name: Attending concurs with disposition: yes Patient and/or validated legal guardian concurs with disposition: yes Final disposition: observation Legal status: Voluntary/Patient has signed consent for treatment Reviewed court records: yes (Pt has multiple past DUIs, with his last two years ago.) Assessment Details Total duration spent with the patient: 50 min CPT code(s) utilized: 70026 - Psychotherapy for Crisis - 60 (30-74*) min GRAEME Ortiz, Psychotherapist [facility] - Triage & Transition Services Callback: [phone] AL FEEDER documented in this encounter ED Notes * Ian Epstein MD - 04/15/2024 6:08 AM CST Patient care signed out to me by Dr. Arora. In brief patient is a 38-year-old male who presents due to agitation after concerns for substance abuse. Patient did receive 10 mg IM droperidol prehospital with EMS. He has been resting appropriately. Plan for repeat evaluation and mental health assessment upon sobering. Patient did sober appropriately while under my care. He states he still feels mildly anxious but feels much more calm now that he has had time to clinically sober while in the emergency department. Please see RAVI's consultation note. Patient does have a history of chemical dependency, anxiety, paranoia and auditory hallucinations. His symptoms have stabilized during his course in the emergency department. He does not warrant inpatient mental health stabilization at this time. Continued outpatient management and outpatient referrals for therapy, psychiatry, and suds assessment were ordered. Onfinal recheck patient feels safe with discharging home at this time. He was able to tolerate a lunch tray prior to consideration of discharge. Patient discharged home. ICD-10-CM 1. Hallucinations R44.3 2. Agitation R45.1 Ian Epstein MD 04/15/24 4675 AL FEEDER * Geraldo Arora MD - 04/15/2024 4:12 AM CST Emergency Department Note History of Present Illness Chief Complaint Altered Mental Status and Mental Health Problem HPI Pao Cherry is a 38 year old male who presents to the emergency room with agitation, requiring 911 to be called, and he was very agitated. Per the hold it looks like he thought the officers were monsters, and was actively hallucinating. He does have a history of this, and mother thinks that he also may have used some substance that was not what he thought it was as this sometimes happens she notes when he does use illicit substances. EMS arrived, gave 10 mg of droperidol, and patient is sleeping comfortably at this time but unable to participate in history. No medical complaints were noted, no trauma was noted Independent Historian Yes mother is at the bedside and confirms the above history Review of External Notes Yes I have reviewed the patient's last psychiatry visit when he saw his psychiatrist on 04-04-2024 for severe episode of major depressive disorder with psychotic features. Past Medical History Medical History and Problem List No past medical history on file. Medications acetaminophen (TYLENOL) 325 MG tablet Biotin 5000 MCG TABS Lidocaine (LIDOCARE) 4 % Patch vitamin D3 (CHOLECALCIFEROL) 50 mcg (2000 units) tablet Surgical History No past surgical history on file. Physical Exam Patient Vitals for the past 24 hrs: BP Temp Temp src Pulse Resp SpO2 04/15/24 0329 136/75 98 ??F (36.7 ??C) Temporal (!) 106 20 95 % Physical Exam Vitals: reviewed by me General: Pt seen on [facility], resting very comfortably Eyes: Sleeping ENT: midline trachea. Lungs: No tachypnea, no accessory muscle use. No respiratory distress. CV: Rate as above MSK: no joint effusion. No evidence of trauma Skin: No rash Neuro: Resting comfortably Psych: Not RIS, no e/o AH/VH Diagnostics Lab Results Labs Ordered and Resulted from Time of ED Arrival to Time of ED Departure - No data to display ED Course Medications Administered Medications - No data to display Procedures Discussion of Management Yes I have requested a formal mental health assessment with our DEC assessment team Optional/Additional Documentation Stress/Adjustment Disorders Medical Decision Making / Diagnosis MDM This is a very pleasant 38-year-old male who presents to the emergency room with appears to be hallucinations, possibly related to substance abuse. On my exam he is resting comfortably now, has reassuring vitals, not hypoxic and does not appear to be agitated. Does not sound to get any medical concerns and based on the hold paperwork I do think that he is needing to be seen by a mental health assessment team prior to discharge or disposition. Mother is asking for U-Tox which I think is reasonable, I do not really see any value in advanced imaging with CT or additional labs, will plan for disposition per mental health team for instructions on whether or not to continue to hold and for ultimate disposition. It does look like he has a history of previous. ICD-10 Codes: ICD-10-CM 1. Hallucinations R44.3 2. Agitation R45.1 Geraldo Arora MD 04/15/24 0435 AL FEEDER * Tyler Claros RN - 04/15/2024 3:27 AM CST Patient coming in by EMS. [facility] and [facility]. Pt was in apt, catatonic not responding to EMS but hyperventilating. Police placed patient on hold. 10 droperidol given IM by EMS.Pt's mom is on the way. Hx of self-harm, not currently here for self harm. AL FEEDER * Tyler Claros RN - 04/15/2024 3:27 AM CST Bed: ED17 Expected date: 04/15/24 Expected time: 3:30 AM Means of arrival: Ambulance Comments: [facility] 437 38M behavioral crisis/sedated/hold AL FEEDER documented in this encounter Miscellaneous Notes * Plan of Care - Hakan Chester LICSW - 04/15/2024 9:14 AM CST Pao Cherry April 15, 2024 Plan of Care Hand-off Note Patient Recommended Care Path: observation Clinical Substantiation: A lower level of care has been unsuccessful in treating and stabilizing patient???s mental health symptoms because of recent chemical use, and ongoing mental health symptoms of depressed mood, anxiety, paranoia and auditory hallucinations. However, with brief observation, monitored therapeutic treatment, and intervention of mental health symptoms in the ED, symptoms may be mitigated with potential for disposition to a less restrictive level of care than an inpatient setting. Patient is not currently on the inpatient worklist. Next steps in care include out-pt referrals for therapy, psychiatry and SUDs assessment. Extended Care will follow, working to address mood stabilization. Goals for crisis stabilization: Mood stabilization Next steps for Care Team: Schedule out-Pt f/u. Treatment Objectives Addressed: identifying an appropriate aftercare plan, identifying additional supports Therapeutic Interventions: Coached on coping techniques/relaxation skills to help improve distress tolerance and managing intense emotions., Reviewed healthy living that supports positive mental health, including looking at sleep hygiene, regular movement, nutrition, and regular socialization. Has a specific means been identified for suicidal.homicide actions: No If yes, describe: Explain action steps toward mitigation: Document completion of mitigation action: The follow up action still needed prior to discharge: Patient coping skills attempted to reduce the crisis: illicit chemical and alcohol use. Collateral contact information: Tess Martinez (mother) [phone] Legal Status: Voluntary/Patient has signed consent for treatment Reviewed court records: yes (Pt has multiple past DUIs, with his last two years ago.) Psychiatry Consult: GRAEME Ortiz AL FEEDER documented in this encounter Plan of Treatment Not on file documented as of this encounter Visit Diagnoses Diagnosis Hallucinations Agitation Other and unspecified special symptom or syndrome, not elsewhere classified Major depression, recurrent Major depressive disorder, recurrent episode, unspecified Paranoia (H) Delusional disorder Psychosis, unspecified psychosis type (H) documented in this encounter Additional Health Concerns Assessment Noted Time PHQ-9 Depression Total Score: 5 11/30/19 24 9:54 PM CDT documented as of this encounter Care Teams Registry Np Relationship Specialty Start Date End Date Radha Condon MD [address] [place] [address] DR PILI LUCERO, FAN [address] PCP - General Internal Medicine 11/07/20 aRdha Condon MD [address] [place] [address] [place] [address] Assigned PCP 11/10/20 David Hernandez MD [address] [place] [address] Genetics, Clinical 07/27/22 David Hernandez MD [address] [place] [address] Genetics, Clinical 07/27/22 David Hernandez MD [address] [place] [id number] Assigned Pediatric Specialist Provider 09/12/23 05/13/24 documented as of this encounter
--- OUTSIDE RECORDS SUMMARY | 2024-05-22 06:37 | XMS_ITS | Clinical Summary ---
Author Organization [facility] Address [address] [place] [address] Care Team Providers Care Blow Down Operator Name Role Phone Radha Condon MD Primary Care Provider Radha Condon MD Unavailable David Hernandez MD Unavailable [phone] David Hernandez MD Unavailable Dorothy Thompson APRN LOTTERY CLERK Unavailable [phone] Allergies Active Allergy Reactions Criticality Noted Date Comments Other Environmental Allergy 11/27/19 10 PN: LW Other1: -no latex Medications * This document contains information received from the source organization and may not represent a complete record from that organization. Biotin 5000 MCG TABS Take 5,000 mcg by mouth daily Active vitamin D3 (CHOLECALCIFERO L) 50 mcg (2000 units) tablet Take 50 mcg by mouth daily Active acetaminophen (TYLENOL) 325 MG tabletIndicatio ns:Non-traumati c rhabdomyolysis, COVID-19 Take 2 tablets (650 mg) by mouth every 4 hours as needed for mild pain or other (and adjunct with moderate or severe pain or per patient request) 4 Active Additional Information Patient not taking.Reported on 10/01/2023 Lidocaine (LIDOCARE) 4 % PatchIndication s:LUQ abdominal pain,Spasm of abdominal muscles Place 1 patch onto the skin every 24 hours To prevent lidocaine toxicity, patient should be patch free for 12 hrs daily. 20 patch 2 4 Active FLUoxetine (PROZAC) 40 MG capsuleIndicati ons:Major depressive disorder, recurrent episode with anxious distress Take 1 capsule (40 mg) by mouth daily. 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 14 tablet 5 Active hydrOXYzine HCl (ATARAX) 25 MG tabletIndicatio ns:Major depressive disorder, recurrent episode with anxious distress Take 1-2 tablets (25-50 mg) by mouth 2 times daily as needed for anxiety (and or sleep). 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 30 tablet 1 5 Active Active Problems Problem Noted Date Diagnosed Date Major depression, recurrent 04/15/2024 Paranoia 04/15/2024 Psychosis, unspecified psychosis type 04/15/2024 COVID-19 09/07/2023 Shoulder pain, left 07/09/2022 Non-traumatic rhabdomyolysis 10/24/20202018 novel coronavirus disease (COVID-19) 2020 Alcohol use disorder, mild, abuse 04/03/2018 History of methamphetamine abuse 04/02/2018 Overview (06/09/2022): Pt states that he has been sober for past 3 yrs., Shoulder sprain 07/25/2011 CARDIOVASCULAR SCREENING; LDL GOAL LESS THAN 160 07/25/2011 Encounters * This document contains information received from the source organization and may not represent a complete record from that organization. Date Type Department Care Team Description 05/01/2024 Travel 04/17/2024 MyC Medical Advice [facility] Services - Behavioral Service Line [address] [place] [address] Chun Seth 04/15/2024 3:27 AM MEDICAL OFFICE ASSISTANT INSTRUCTOR - 04/15/2024 2:17 PM [facility] [address] [place] [phone] Geraldo Arora MD White, Scott, MD Hallucinations; Agitation Discharge Disposition: Home or Self Care from Last 3 Months Immunizations Name Administration Dates Next Due Flu, Unspecified 01/22/1998,02/01/1997 HIB, Unspecified 01/03/1985 HepA-Peds, Unspecified 10/22/1998 Hepatitis A (ADULT 19+) 10/22/1998 Hepatitis B, Adult 06/04/1998 Hepatitis B, Peds 06/04/1998,03/05/1998 Historical DTP/aP 11/06/1987, 6,08/31/1984,1984,02/29/1984 Influenza (prior to 2023) 05/10/2019 Influenza Vaccine >6 months,quad, PF 06/09/2022, 12/06/2020,01/22/2016 Influenza Vaccine IM Ages 6- 35 Months 4 Valent (PF) 01/22/2016 MMR 03/05/1998,11/18/1995,08/21/1985 OPV, trivalent, live 06/21/1984 Pneumococcal 23 valent 12/06/2020 Polio, Unspecified 11/06/1987, 6,06/21/1984,1983 TDAP Vaccine (Adacel) 01/22/2016 Td (Adult), Adsorbed 03/05/1998,11/18/1995 Family History Relation Status Comments Brother Alive Daughter Alive Father Alive Maternal Grandfather heart attac k Maternal Grandmother Lung cancer Maternal Half-Brother Alive Maternal Uncle 1 Alive Maternal Uncle 2 Alive Maternal Uncle 3 Alive Maternal Uncle 4 Alive Mother Alive hypertension,T2D depression Other 1 Alive Other 2 Alive Other 3 Alive Other 4 Alive Other 5 Alive Other 6 Alive Other 7 Alive Other 8 Alive Other 9 Alive Other 10 Alive Recurrent rhabdo myolysis Other 11 Alive Other 12 Alive Paternal Aunt 1 Alive Paternal Aunt 2 Alive Paternal Grandfather liver failu re Paternal Grandmother dementia Paternal Uncle Alive Son 1 Alive Son 2 Alive Son 3 Alive elevated CK Son 4 Alive elevated CK Social History Tobacco Use Types Packs/Day Years Used Date Smoking Tobacco: Former Cigarettes 1.5 21 0 05/11/1999 - 05/29/2020 Smokeless Tobacco: Former Quit: 05/29/2020 Tobacco Cessation:Counseling Given: Not Answered Comments:Started at 16 yrs age and was on worsening to 20 Cig/day and last smoked around 04/2022 Alcohol Use Standard Drinks/Week Comments Yes 0 (1 standard drink = 0.6 oz pure alcohol) pt report she had 2 shots yesterday PHQ-2 Answer Date Recorded PHQ-2 Score 5 05/17/2024 Adolescent Education Answer Date Record ed Getting [...] on file Legal Sex Male 4:50 AM MEDICAL OFFICE ASSISTANT INSTRUCTOR Gender Identity Male 06/04/2022 7:03 PM CDT Sexual Orientation Not on file Last Filed Vital Signs Vital Sign Reading Time Taken Comments Blood Pressure 113/73 04/15/2024 2:16 PM MEDICAL OFFICE ASSISTANT INSTRUCTOR Pulse 80 04/15/2024 2:16 PM MEDICAL OFFICE ASSISTANT INSTRUCTOR Temperature 36.7 C (98 F) 04/15/2024 3:29 AM MEDICAL OFFICE ASSISTANT INSTRUCTOR Respiratory Rate 14 04/15/2024 7:00 AM MEDICAL OFFICE ASSISTANT INSTRUCTOR Oxygen Saturation 99% 04/15/2024 2:16 PM MEDICAL OFFICE ASSISTANT INSTRUCTOR Inhaled Oxygen Concentration - - Weight 82.9 kg (182 lb 12.8 oz) 10/01/2023 1:32 PM CDT Height 169.2 cm (5' 6.61) 10/01/2023 1:32 PM CD T Body Mass Index 28.96 10/01/2023 1:32 PM CDT Plan of Treatment Health Maintenance Due Date Last Done Comments DEPRESSION ACTION PLAN 1983 HEPATITIS B IMMUNIZATION (4 of 4 - 4-dose series) 07/30/1998 06/04/1998, 06/04/1998, 03/05/1998 YEARLY PREVENTIVE VISIT 06/10/2023 06/09/2022, 12/06 COVID-19 Vaccine ( season) 2023 ANNUAL REVIEW OF HM ORDERS 09/30/202409/30, 06/09/2022, 11/07/2020 PHQ-9 11/14/2024 05/17/2024, 04/22, 12/01/2023, Additional history exists ADVANCE CARE PLANNING 12/06/2025 12/06/2020 GLUCOSE 09/30/2026 10/01/2023, 08/21, 09/11/2023, Additional history exists LIPID 11/10/2027 11/09/2022, 05/21, 11/07/2020 ZOSTER IMMUNIZATION (1 of 2) 10/27/2033 DTAP/TDAP/TD IMMUNIZATION (8 - Td or Tdap) 11/17/2033 11/18/2023, 01/22/2016, 03/05/1998, Additional history exists Pneumococcal Vaccine: Pediatrics (0 to 5 Years) and At-Risk Patients (6 to 49 Years) Aged Out 12/06/2020 No longer eligible based on patient's age to complete this topic INFLUENZA VACCINE Completed 02/03/2024, , 12/06/2020, Additional history exists HEPATITIS C SCREENING Completed 04/06/2024, 021 HIV SCREENING Completed 04/19/2024, 03/22, 11/07/2020 HPV IMMUNIZATION Aged Out No longer e ligible based on patient's age to complete this topic MENINGITIS IMMUNIZATION Aged Out No l onger eligible based on patient's age to complete this topic Procedures Procedure Name Priority Date/Time Associated Diagnosis Comments COMPREHENSIVE METABOLIC PANEL Routine 10/01/2023 2:12 PM CDT Non-traumatic rhabdomyolysis LIPID PROFILE Routine 11/09/2022 2:59 PM CDT Non-traumatic rhabdomyolysis HIV ANTIGEN ANTIBODY COMBO Routine 11/07/2020 10:39 AM CDT Screening for HIV (human immunodeficiency virus) HEPATITIS C SCREEN REFLEX TO HCV RNA QUANT AND GENOTYPE Routine 11/07/2020 10:39 AM CDT Need for hepatitis C screening test from Last 3 Months or Most Recently Relevant to Health Maintenance Results * (ABNORMAL) Comprehensive metabolic panel (BMP + Alb, Alk Phos, ALT, AST, Total. Bili, TP) (10/01/2023 2:12 PM CDT) Sodium 140 135 - 145 mmol/L 10/02/2023 1:14 AM CDT [facility] Potassium 4.3 3.4 - 5.3 mmol/L 10/02/2023 1:14 AM CDT [facility] Carbon Dioxide (CO2) 25 22 - 29 mmol/L 10/02/2023 1:14 AM CDT [facility] Anion Gap 11 7 - 15 mmol/L 10/02/2023 1:14 AM CDT [facility] Urea Nitrogen 13.2 6.0 - 20.0 mg/dL 10/02/2023 1:14 AM CDT [facility] Creatinine 1.28(H) 0.67 - 1.17 mg/dL 10/02/2023 1:14 AM CDT [facility] GFR Estimate 73 >60 mL/min/1. 73m2 10/02/2023 1:14 AM CDT [facility] Comment:eGFR calculated us2020 CKD-EPI equation. Calcium 9.4 8.6 - 10.0 mg/dL 10/02/2023 1:14 AM CDT [facility] Chloride 104 98 - 107 mmol/L 10/02/2023 1:14 AM CDT [facility] Glucose 84 70 - 99 mg/dL 10/02/2023 1:14 AM CDT [facility] Alkaline Phosphatase 86 40 - 150 U/L 10/02/2023 1:14 AM CDT [facility] AST 26 0 - 45 U/L 10/02/2023 1:14 AM CDT [facility] Comment:Reference intervals for this test were updated on 08/31/2022 to more accurately reflect our healthy population. There may be differences in the flagging of prior results with similar values performed with this method. Interpretation of those prior results can be made in the context of the updated reference intervals. ALT 20 0 - 70 U/L 10/02/2023 1:14 AM CDT [facility] Comment:Reference intervals for this test were updated on 08/31/2022 to more accurately reflect our healthy population. There may be differences in the flagging of prior results with similar values performed with this method. Interpretation of those prior results can be made in the context of the updated reference intervals. Protein Total 7.3 6.4 - 8.3 g/dL 10/02/2023 1:14 AM CDT [facility] Albumin 4.6 3.5 - 5.2 g/dL 10/02/2023 1:14 AM CDT [facility] Bilirubin Total 0.3 <=1.2 mg/dL 10/02/2023 1:14 AM CDT [facility] Blood BLOOD SPECIMEN / Unknown Venipuncture / Unknown 10/01/2023 2:12 PM CDT 10/01/2023 2:12 PM CDT Radha Condon MD LAB - BLOOD ORDERABLES Final Result [facility] [address] [facility], [address] [place], [place] [id number] [place] * (ABNORMAL) Lipid Profile (11/09/2022 2:59 PM CDT) Cholesterol 191 <200 mg/dL 11/09/2022 3:48 PM CDT [facility] Triglycerides 110 <150 mg/dL 11/09/2022 3:48 PM CDT [facility] Direct Measure HDL 51 >=40 mg/dL 11/09/2022 3:48 PM CDT [facility] LDL Cholesterol Calculated 118(H) <=100 mg/dL 11/09/2022 3:48 PM CDT [facility] Non HDL Cholesterol 140(H) <130 mg/dL 11/09/2022 3:48 PM CDT [facility] Blood STRUCTURE OF LEFT UPPER LIMB / Unknown Venipuncture / Unknown 11/09/2022 2:59 PM CDT 11/09/2022 3:01 PM CDT Narrative [facility] - 11/09/2022 3:48 PM CDT Cholesterol Desirable: <200 mg/dL Triglycerides Normal: Less than 150 mg/dL Borderline High: 150-199 mg/dL High: 200-499 mg/dL Very High: Greater than or equal to 500 mg/dL Direct Measure HDL Female: Greater than or equal to 50 mg/dL Male: Greater than or equal to 40 mg/dL LDL Cholesterol Desirable: <100mg/dL Above Desirable: 100-129 mg/dL Borderline High: 130-159 mg/dL High: 160-189 mg/dL Very High: >= 190 mg/dL Non HDL Cholesterol Desirable: 130 mg/dL Above Desirable: 130-159 mg/dL Borderline High: 160-189 mg/dL High: 190-219 mg/dL Very High: Greater than or equal to 220 mg/dL us David Hernandez MD LAB - BLOOD ORDERABLES Final Result [facility] Acute Care Lab [address] [facility], [address] [place] [address], [place] [phone] * HIV Antigen Antibody Combo (11/07/2020 10:39 AM CDT) HIV Antigen Antibody Combo Nonreactive Nonreactive 11/08/2020 9:54 AM CDT [facility] Comment:HIV-1 p24 Ag & HIV-1 /HIV-2 Ab Not Detected Blood STRUCTURE OF RIGHT UPPER LIMB / Unknown Venipuncture / Unknown 11/07/2020 10:39 AM CDT 11/07/2020 10:40 AM CDT us Radha Condon MD LAB - BLOOD ORDERABLES Final Result [facility] Special[facility] Core Lab [address] [facility], [address] [place] [address], [place] [phone] * Hepatitis C Screen Reflex to HCV RNA Quant and Genotype (11/07/2020 10:39 AM CDT) Hepatitis C Antibody Nonreactive Nonreactive 11/08/2020 9:[address] [facility] Blood STRUCTURE OF RIGHT UPPER LIMB / Unknown Venipuncture / Unknown 11/07/2020 10:39 AM CDT 11/07/2020 10:40 AM CDT [facility]ative [facility] - 11/08/2020 9:54 AM CDT Assay performance characteristics have not been established for newborns, infants, and children. Radha Condon MD LAB - BLOOD ORDERABLES Final Result [facility] Special[facility] Core Lab [address] [facility], [address] [place] [address], [facility] [phone] from Last 3 Months or Most Recently Relevant to Health Maintenance Insurance [employer] IFB BOLD [employer]B BOLD [facility] [employer] Advance Directives For more information, please contact: [phone] * Full Code (Latest Code Status on File) Date Activated Date Inactivated Comments 09/07/2023 6:09 PM 09/12/2023 3:08 PM All basic an d advanced life-sustaining interventions are performed as appropriate Question Answer Comments Code status determined by: Discussion with nneka nt/ legal decision maker * Full Code Date Activated Date Inactivated Comments 07/01/2022 2:49 AM 07/08/2022 1:15 PM All basic an d advanced life-sustaining interventions are performed as appropriate Question Answer Comments Code status determined by: Discussion with nneka nt/ legal decision maker * Full Code Date Activated Date Inactivated Comments 10/24/2020 8:26 AM 10/31/2020 4:52 PM All basic and advanced life-sustaining interventions are performed as appropriate Question Answer Comments Code status determined by: Discussion with nneka nt/ legal decision maker Care Teams Blow Down Operator Relationship Specialty Start Date End Date Rahda Condon MD [address] [place] [address] [place] [id number] PCP - General Internal Medicine 11/07/20 Radha Condon MD [address] [place] [address] [place] [id number] Assigned PCP 11/10/20 David Hernandez MD [address] [place] [address] Genetics, Clinical 07/27/22 David Hernandez MD [address] [place] [address] Genetics, Clinical 07/27/22 Dorothy Thompson APRN LOTTERY CLERK [address] [facility] [place] [id number] Assigned Behavioral Health Provider 05/14/24
--- OUTSIDE RECORDS SUMMARY | 2024-05-22 06:37 | XMS_ITS | Clinical Summary ---
Author Organization [facility] Address [address] [place] [address] Care Team Providers Care Home Appliance Technician Name Role Phone Radha Condon Primary Care Provider [phone] Source Comments You are receiving this document as you are listed as the primary care provider,follow-up provider, or the patient has been referred to you for consultation.This is in compliance with the Medicare and[facility] EHR Incentive Program,which states Providers who transition their patient to another setting of careor provider of care or refers their patient to another provider of care shouldprovide summary care record for each transition of care or referral. [facility] Allergies Active Allergy Reactions Criticality Noted Date Comments Other 11/26/2009 PN: LW Other1: -no latex Medications * This document contains information received from the source organization and may not represent a complete record from that organization. VITAMIN D-[address] 25 MCG (1000 UT) tablet Take 1 Tablet (1,000 Units) by mouth. 5 Active FLUoxetine (PROZAC) 40 MG capsule Take 1 Capsule (40 mg) by mouth. 5 Active hydrOXYzine HCl (ATARAX) 25 MG tablet Take 1-2 Tablets (25-50 mg) by mouth. 5 Active OLANZapine (ZYPREXA) 10 MG tablet Take 1 Tablet (10 mg) by mouth. 5 Active ibuprofen (MOTRIN) 200 MG tablet Take 1-2 Tablets (200-400 mg) by mouth every 4 hours as needed for Pain. Active acetaminophen 500 MG tablet Take 1-2 Tablets (500-1,000 mg) by mouth every 4 hours as needed for Pain. 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 Date Type Department Care Team Description 05/19/2024 8:30 AM STATE APPELLATE CLERK Office Visit [facility] [address] [place] [address] Estephanie Woods, OTR/L Stiffness of finger joint of left hand (Primary Dx); Amputation of index finger, traumatic (HRC); Closed nondisplaced fracture of distal phalanx of left ring finger with routine healing, subsequent encounter 05/15/2024 10:40 AM STATE APPELLATE CLERK [facility] [address] [place] [address] Estephanie Matson PA-C Hand pain, left (Primary Dx); Hand injury, left, subsequent encounter 05/15/2024 10:25 AM STATE APPELLATE CLERK Ancillary Procedure [facility] [address] Radiology [address] [place] [address] Estephanie Matson PA-C Hand pain, left 05/12/2024 Telephone [facility] [address] [place] [address] Estephanie Woods, OTR/L Hand Problem 05/08/2024 10:00 AM STATE APPELLATE CLERK Office Visit [facility] [place] [address] Elizabeth Fisher PA-C Partial traumatic amputation of left index finger through phalanx, subsequent encounter (HRC) (Primary Dx); Closed displaced fracture of distal phalanx of left ring finger with delayed healing, subsequent encounter; Work related injury 05/05/2024 9:00 AM STATE APPELLATE CLERK Office Visit [facility] [address] [place] [address] Estephanie Woods, OTR/L Stiffness of finger joint of left hand (Primary Dx); Amputation of index finger, traumatic (HRC); Closed nondisplaced fracture of distal phalanx of left ring finger with routine healing, subsequent encounter 04/21/2024 Notes/Orders [facility] [address] [place] [address] Estephanie Woods, OTR/L 04/12/2024 9:30 AM STATE APPELLATE CLERK Office Visit [facility] [address] [place] [address] Estephanie Woods, OTR/L Stiffness of finger joint of left hand (Primary Dx); Amputation of index finger, traumatic (HRC); Closed nondisplaced fracture of distal phalanx of left ring finger with routine healing, subsequent encounter 03/29/2024 12:00 PM STATE APPELLATE CLERK Office Visit [facility] [address] [place] [address] Estephanie Woods, OTR/L Stiffness of finger joint of left hand (Primary Dx); Amputation of index finger, traumatic (HRC); Closed nondisplaced fracture of distal phalanx of left ring finger with routine healing, subsequent encounter 03/29/2024 Telephone [facility] [address], [place] [address] Estephanie Woods, OTR/L QUESTIONS, GENERAL 03/20/2024 3:45 PM STATE APPELLATE CLERK Office Visit [facility] [address] [place] [address] Elizabeth Fisher PA-C Partial traumatic amputation of left index finger through phalanx, subsequent encounter (HRC) (Primary Dx); Closed displaced fracture of distal phalanx of left ring finger with delayed healing, subsequent encounter; Work related injury 03/18/2024 1:00 PM STATE APPELLATE CLERK Office Visit [facility] [address] [place] [address] Estephanie Woods C, OTR/L Stiffness of finger joint of left hand (Primary Dx); Amputation of index finger, traumatic (HRC); Closed nondisplaced fracture of distal phalanx of left ring finger with routine healing, subsequent encounter 03/08/2024 3:40 PM STATE APPELLATE CLERK [facility] [address] [place] [address] Estephanie Matson PA-C Hand injury, left, subsequent encounter (Primary Dx); Closed fracture of multiple bones of left hand, initial encounter 03/07/2024 9:30 AM STATE APPELLATE CLERK Office Visit [facility] [address] [place] [address] Estephanie Woods, OTR/L Stiffness of finger joint of left hand (Primary Dx); Amputation of index finger, traumatic (HRC); Closed nondisplaced fracture of distal phalanx of left ring finger with routine healing, subsequent encounter; Pain of finger of left hand 03/06/2024 12:15 AM STATE APPELLATE CLERK E-Visit [facility] [place] [address] [address] Estephanie Matson PA-C Chief Comp: QUESTIONS, GENERAL 03/03/2024 12:00 PM STATE APPELLATE CLERK Office Visit [facility] [address] [place] [address] Estephanie Woods, OTR/L Stiffness of finger joint of left hand (Primary Dx); Amputation of index finger, traumatic (HRC); Closed nondisplaced fracture of distal phalanx of left ring finger with routine healing, subsequent encounter; Pain of finger of left hand 02/22/2024 9:30 AM STATE APPELLATE CLERK Office Visit [facility] [address] [place] [address] Estephanie Woods, OTR/L Stiffness of finger joint of left hand (Primary Dx); Amputation of index finger, traumatic (HRC); Closed nondisplaced fracture of distal phalanx of left ring finger with routine healing, subsequent encounter from Last 3 Months Immunizations Immunization Administration Dates Next Due DTP 06/21/1984 HepA Adult (19+ yrs) 10/22/1998 HepB Adult (Engerix-B, 20+ yrs, 3 dose series) 0 06/04/1998 HepB Ped/Adol (0-18 yrs) 03/05/1998 Influenza, Unspecified Formulation 01/22/1998, MMR 03/05/1998 OPV, Trivalent (Orimune or tOPV) 06/21/1984 Td 03/05/1998 Tdap 11/18/2023 Family History Medical History Relation Name Comments Hypertension Father Diabetes Mother Alcohol Abuse Maternal Grandfather Depression Maternal Grandfather Alcohol Abuse Paternal Grandfather Depression Paternal Grandfather Relation Name Status Comments Father Alive Mother Alive Brother Alive Maternal Grandfather Paternal Grandfather Social History Tobacco Use Types Packs/Day Years [...] Sign Reading Time Taken Comments Blood Pressure 154/104 11/26/2023 9:24 AM CDT Pulse 56 11/26/2023 9:24 AM CDT Temperature 36.7 C (98 F) 11/26/2023 9:24 AM CDT Respiratory Rate 20 11/26/2023 9:24 AM CDT Oxygen Saturation 99% 11/26/2023 9:24 AM CDT Inhaled Oxygen Concentration - - Weight 62.4 kg (137 lb 9.1 oz) 04/02/2018 8:30 P M STATE APPELLATE CLERK Height 172.7 cm (5' 8) 04/02/2018 8:30 PM STATE APPELLATE CLERK Body Mass Index 20.92 04/02/2018 8:30 PM STATE APPELLATE CLERK Plan of Treatment Upcoming Encounters Date Type Department Care Team (Late st Contact Info) Description 05/26/2024 8:15 AM STATE APPELLATE CLERK [facility]ointment [facility] [address] [facility] [address] [place] [address]. [place] [address] Kimmie Fuentes MD [address] [place] [address] 06/05/2024 9:00 AM CDT Appointment [facility] [address] [place] [address] Elizabeth Fisher PA-C [address] [facility] [place] [address] Health Maintenance Due Date Last Done Comments Hep C Screening (Preventive Services) 1983 HepB (3) 07/30/1998 06/04/1998, 03/05/1998 HepA (2 of 2 - Risk 2-dose series) 04/24/1999 10/22/1998 HIV Screening (Preventive Services) 1999 Adult Preventive Visit 10/27/2001 Cholesterol 10/27/2018 COVID-19 Vaccine ( season) 2023 Zoster/Shingles (1 of 2) 10/27/2033 DTaP/Tdap/Td (8 - Tdap) 11/17/2033 11/18/19 24, 01/22/2016, 03/05/1998, Additional history exists Hib Aged Out 01/03/1985 No longer eligi ble based on patient's age to complete this topic IPV (Polio) Completed 11/06/1987, 11/21, 06/21/1984, Additional history exists Pneumococcal Aged Out 12/06/2020 No longer eligi ble based on patient's age to complete this topic Influenza Completed 02/03/2024, 05/21, 12/06/2020, Additional history exists HPV Vaccine Aged Out No longer eligi ble based on patient's age to complete this topic MCV4 Aged Out No longer eligi ble based on patient's age to complete this topic Meningococcal B Aged Out No longer el igible based on patient's age to complete this topic Procedures Procedure Name Priority Date/Time Associated Diagnosis Comments XR HAND LT 3+ VIEWS Routine 05/15/2024 1 0:14 AM STATE APPELLATE CLERK Hand pain, left from Last 3 Months Results * XR Hand Lt 3+ Views (05/15/2024 10:14 AM STATE APPELLATE CLERK) Anatomical Region Laterality Modality Upper Extremity, Hand Computed R adiography 05/15/2024 10:1 4 AM STATE APPELLATE CLERK Narrative 05/15/2024 11:21 AM STATE APPELLATE CLERK EXAM: XR HAND LT 3+ VIEWS LOCATION: [facility] DATE: 05/15/2024 INDICATION: Left hand finger injury pain, Pain in left hand COMPARISON: 12/06/2023 IMPRESSION: Postsurgical change amputation DIP joint of the second finger. Healing fracture fourth distal phalanx. Avulsion fracture at the fourth PIP joint again noted. No dislocation. Procedure Note Adilene Anguiano MD - 05/15/2024 EXAM: XR HAND LT 3+ VIEWS LOCATION: [facility] [address] DATE: 05/15/2024 INDICATION: Left hand finger injury pain, Pain in left hand COMPARISON: 12/06/2023 IMPRESSION: Postsurgical change amputation DIP joint of the second finger.Healing fracture fourth distal phalanx. Avulsion fracture at the fourthPIP joint again noted. No dislocation. Estephanie Matson PA-C RAD GD Final Result from Last 3 Months [id number] [address]Y [place] [id number] [phone] TECHNOLOGY [place] [id number] [id number] TECHNOLOGY [place] [id number] MEDICA IF LIMITED [facility] [place]AN [place] [id number] [id number] TECHNOLOGY FAN Ramirez [id number] [employer]COMP PENDING [id number] TECHNOLOGY FAN Ramirez [id number] [employer] [place] D[employer]R [phone] TECHNOLOGY FAN Ramirez [id number] [address] [phone] TECHNOLOGY FAN [place] [id number] [employer] Advance Directives * Full Code (Latest Code Status on File) Date Activated Date Inactivated Comments 04/02/2018 7:37 PM 04/05/2018 6:35 PM Care Teams Home Appliance Technician Relationship Specialty Start Date End Date Radha Condon MBBS [address] [place] [address] PCP - General Internal Medicine 11/18/23
--- OUTSIDE RECORDS SUMMARY | 2024-05-22 06:37 | XMS_ITS | Encounter Summary ---
Author Organization [facility] Address [address] [place] [address] Care Team Providers Care Manager Statistical Programming Name Role Phone Radha Condon Primary Care Provider [phone] Reason for Visit * Reason Comments Hand Problem * Therapies (Routine) - Authorized Specialty Diagnoses / Procedures Referred By Elyssa t Referred To Contact Diagnoses Closed fracture of multiple bones of left hand, initial encounter Estephanie Matson PA-C [address] [place] [address] Phone: tel: fax: Referral ID Status Reason Start Date Expiration Date V isits Requested Visits Authorized [id number] Authorized 12/06/2023 12/05/2024 20 20 Encounter Details Date Type Department Care Team (Late st Contact Info) Description 05/19/2024 8:30 AM PHOTO OPTICS TECHNICIAN Office Visit [facility] [address] [place] [address] Estephanie Woods, OTR/L [address] [facility] [place] [id number] Stiffness of finger joint of left hand [...] this encounter Progress Notes * Estephanie Woods, OTR/L - 05/19/2024 8:30 AM [facility] - Progress [...] PMH/Precautions: The patient's PMH was reviewed in [facility]. Refer to EMR for past medical history, medications, drug allergies and precautions. Reviewed. 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 Living situation: The patient lives independently. Hobbies/leisure/sports: Daughter is 19 months old. Reading. Working out. Riding bikes and motorcycles. Sports. Functional limitations: Gripping, pinching, carrying, lifting, work/leisure activities, ADL's. Ring finger PIP castin weeks through 04/21/24 (pt did not return until 05/05 so we casted until that date) SUBJECTIVE: Pao Cherry is 6 months post-operative. He was 10 minutes late, so session was a bit shorter. QRC was present. We discussed that he may transition to work conditioning soon. He will see Dr. Ferrer 05/26/24 and will wait for her recommendation on next steps. Patient is disappointed in his ROM. He is trying to use his hand functionally at work, but it is challenging. OBJECTIVE: Pain: Variable. Sensation: Sensation is disrupted at tip of index. Incision/Scar: Well healed. Edema: Mild in hand. AROM: Ring PIP was 42 degrees today (compared to 65 at start of casting). AROM 05/19/2024 Index Middle Ring Small MCP Extension/Flexion 0/85 0/92 0/95 0/85 PIP Extension/Flexion 20/65 22/75 42/60 pre 40/70 post 35/80 DIP Extension/Flexion - 0/60 0/40 0/70 Strength: Right 05/19/2023 Left 05/19/2023 Shaper And Presser, elbow at 90 degrees 125 lbs 38 lbs Right 05/19/2024 Left 05/19/2024 Lateral pinch 24 lbs 17 lbs Palmar pinch 23.5 lbs 6 lbs TREATMENT INTERVENTION: Paraffin Bath Modality CPT 56506 (5 minutes untimed) Paraffin applied to involved fingers. Therapeutic Exercise CPT 91015 (15 minutes) Objective measures obtained. He may still want to use splint at night to maintain ring PIP extension. Stretches performing for finger flexion/extension while hand in paraffin. Reviewed and patient performed finger AROM- focus on regaining ring PIP flexion. Diagnosis education provided. Timed Code Treatment Minutes: 15 Total Treatment Minutes: 20 ASSESSMENT: He has lost a little ring PIP extension since casting ended, but is still considerably more extended than when casting began. Functional goals: -The patient will be able to manage self-care ADLs with minimal to no difficulty in 2 weeks. -The patient will be able to return to work with minimal to no difficulty in 8 weeks. PLAN: Await recommendation after appointment with Dr. Barrera. Possible transition to work conditioning. Next treatment session: Check response to splint [...] therapy and modalities as appropriate. Therapist Signature: ROSSI Murphy/Monika, CHT #[id number] Visit #17 Payor: [employer] / Plan: [employer] / Product Type: Workers Comp / QRC: Nikki Kirkland, Fax received from [employer] dated 05/08/24 authorizing 5 OT visits. This was passed along to [facility] work comp department and sent to [facility]. O OPTICS TECHNICIAN documented in this encounter Plan of Treatment Upcoming Encounters Date Type Department Care Team (Late st Contact Info) Description 05/26/2024 8:15 AM PHOTO OPTICS TECHNICIAN [facility]ointment [facility] [address] [facility] [address] [place] [address]. [place] [address] Kimmie Fuentes MD [address] [place] [address] 06/05/2024 9:00 AM CDT Appointment [facility] [address] [place] [address] Elizabeth Fisher PA-C [address] [place] [address] documented as of this encounter Visit Diagnoses Diagnosis Stiffness of finger joint of left hand- Primary Amputation of index finger, traumatic (HRC) Closed nondisplaced fracture of distal phalanx of left ring finger with routine healing, subsequent encounter documented in this encounter Care Teams Manager Statistical Programming Relationship Specialty Start Date End Date Radha Condon MBBS [address] [place] [address] [place] [address] PCP - General Internal Medicine 11/18/23 documented as of this encounter
--- OUTSIDE RECORDS SUMMARY | 2024-05-22 06:37 | XMS_ITS | Encounter Summary ---
Author Organization [facility] Address [address] [facility] [place] [address] Care Team Providers Care Associate Director Name Role Phone Radha Condon MD Primary Care Provider Radha Condon MD Unavailable David Hernandez MD Unavailable David Hernandez MD Unavailable David Hernandez MD Unavailable [phone] Dorothy Thompson APRN [facility] Unavailable [phone] Encounter Details Date Type Department Care Team (Late st Contact Info) Description 10/13/2023 MyC Medical Advice SH PHYS STANDARD [address] [place] [phone] Nara [place] Social History Tobacco Use Types Packs/Day Years [...] PHQ-2 Answer Date Recorded PHQ-2 Score 0 10/01/2023 Adolescent Education Answer Date Record ed Getting [...] on file Legal Sex Male 4:50 AM [employer] Gender Identity Male 06/04/2022 7:03 PM CDT Sexual Orientation Not on file documented as of this encounter Plan of Treatment Not on file documented as of this encounter Visit Diagnoses Not on filedocumented in this encounter Additional Health Concerns Assessment Noted Time PHQ-9 Depression Total Score: 2 10/01/19 24 1:13 PM CDT documented as of this encounter Care Teams Associate Director Relationship Specialty Start Date End Date Radha Condon MD [address] [place] [address] [place] [address] PCP - General Internal Medicine 11/07/20 Radha Condon MD [address] [place] [address] [place] [id number] Assigned PCP 11/10/20 David Hernandez MD [address] [place] [address] Genetics, Clinical 07/27/22 David Hernandez MD [address] [place] [address] Genetics, Clinical 07/27/22 [place] [address] [place] [address] Assigned Pediatric Specialist Provider 09/12/23 05/13/24 Dorothy Thompson APRN CHILD CARE ASSISTANT [address] [place] [address] Assigned Behavioral Health Provider 05/14/24 documented as of this encounter
--- OUTSIDE RECORDS SUMMARY | 2024-05-22 06:37 | XMS_ITS | Encounter Summary ---
Author Organization [facility] Address [address] [place] [address] Care Team Providers Care Regional Retail Sales Manager Name Role Phone Radha Condon Primary Care Provider +1- [phone] Reason for Referral * Procedure/Equipment (Routine) - Hold Pending Auth Specialty Diagnoses / Procedures Referred By Contac t Referred To Contact Diagnoses Hand pain, left Procedures MR Hand Lt WO IV Cont Estephanie Matson PA-C [address] [place] [address] Phone: tel: fax: Referral ID Status Reason Start Date Expiration Date V isits Requested Visits Authorized [id number] Hold Pending Auth 05/15/2024 08/14/2025 1 1 GHT DISPATCHER * Procedure/Equipment (Routine) - Incomplete Specialty Diagnoses / Procedures Referred By Contac t Referred To Contact Diagnoses Hand pain, left Procedures XR Hand Lt 3+ Views Estephanie Matson PA-C [address] [place] [address] Phone: tel: fax: Referral ID Status Reason Start Date Expiration Date V isits Requested Visits Authorized [id number] Incomplete 05/15/2024 08/14/2025 1 1 GHT DISPATCHER Reason for Visit * Reason Comments Finger Pain Left Encounter Details Date Type Department Care Team (Late st Contact Info) Description 05/15/2024 10:40 AM FREIGHT DISPATCHER Office Visit [facility] [address] [place] [address] Estephanie Matson PA-C [address] [place] [address] Hand pain, left (Primary Dx); Hand injury, left, subsequent encounter Social History Tobacco Use Types [...] on file documented as of this encounter Patient Instructions * Patient Instructions* Estephanie Matson PA-C - 05/15/2024 10:40 AM FREIGHT DISPATCHER Reason for today's visit: Follow up s/p revision partial amputation of left index finger at DIP joint and non-op left ring finger injuries, DOI 11/18/2023 Treatment plan: MRI ordered left hand. Continue to work on exercises and motion as recommended by hand therapy Follow up appointments: You will follow up with one of our hand surgeons to review MRI results If you have any questions about your visit, your symptoms, your medication, your test results or itis not clear what your diagnosis or treatment plan is please contact me (via on-line services/e-mail) or call my office at [phone]. Your follow up appointment will be scheduled with one of the Orthopaedic Hand Surgery Department team members. This may be one of our physician assistants. They are always in direct communication with your physician. Thank you for continuing to trust us with your care. We are your partner. GHT DISPATCHER documented in this encounter Progress Notes * Estephanie Matson PA-C - 05/15/2024 10:40 AM CST Surgery: 11/18/2023: Revision partial amputation of left index finger at DIP joint, nonop left ring finger distal phalanx fx and PIP avulsion fx Date of Injury: 11/18/2023 Hand dominance: Right Xrays needed next visit: none Follow up: MRI ordered, then follow-up with one of our hand surgeons CHIEF COMPLAINT: follow up left index finger surgery HISTORY OF PRESENT ILLNESS: Pao Cherry is a 38 y.o. right hand dominant male seen in clinic for follow up of the aforementioned left index finger revision partial amputation and non-op left ring finger distal phalanx fracture and PIP avulsion fracture. The patient was last seen in clinic on 03/08/2024 with the following treatment plan: Continue to work with hand therapy and a home exercise program, occupational medicine referral was provided, updated work note with no restrictions provided, and a behavioral health consult has been placed. Today the patient reports he has recently come out of his cast in the ring finger and has transitioned to a brace and is starting to work on motion. He is not pleased with his progress and his continued limitations and pain in his hand. C here today.Seeing occupational medicine to assist with work restrictions. Recent hospital admissions in March for hallucinations, mood disorder, psychoactive substance-induced psychosis. 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 smoking and ETOH consumption. PHYSICAL EXAMINATION: Estimated body mass index is 20.92 kg/m?? as calculated from the following: Height as of 04/02/18: 5' 8 (1.727 m). Weight as of 04/02/18: 137 lb 9.1 oz (62.4 kg). He is a pleasant male, alert and oriented and in no acute distress. He is well dressed and well groomed with appropriate affect. PULMONARY: Breathing comfortably on room air. VASCULAR: 2+ radial pulse palpated and brisk capillary refill. MUSCULOSKELETAL: Exam of the left hand shows healed amputation tip of index finger with some sensitivity at the tip. Some scar firmness along volar aspect of amputation tip. Mild swelling noted at index, long, ring fingers, more notably at PIP. There is stiffness at the PIP of the index, middle, and small finger. They lack full extension; cannot lay flat on a table. When making a fist the fingerscollectively are 1-2 cm from reaching the palm. Ring finger PIP about 30 degrees shy of full extension and about 90 degrees flexion. He is most tender at the ring PIP but there is also tenderness at long finger and small finger PIP. NEURO: Sensation is intact to light touch in the median, ulnar and radial nerve distributions. RESULTS REVIEW: My independent review of left hand x-rays updated today, 05/15/2024, show amputation tip of distal phalanx of index finger. Avulsion fracture of ring PIP with some degenerative changes noted at ring finger PIP. ASSESSMENT: 1. 6 months s/p revision left index finger partial amputation through DIP joint, 2. Left ring distal phalanx fracture and ring PIP avulsion fx, possibly secondary to dislocation 3. Left ring PIP concern for central slip injury- extension casting complete now starting finger motion 4. Continued hand pain and stiffness, particularly PIP pain and stiffness in middle, ring, and small fingers PLAN: Since the patient's last visit, Pao does not feel he has made much improvement. He is concerned about his poor hand function due to stiffness and pain. 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 I did order an MRI today to better evaluate his current symptoms. Pao is concerned about missing an injury and about the pain and stiffness he still has. His [facility] wants to know his final workability. I discussed that this hand injury is complex and could still take several months to see final progress. Injuries to the fingers can result in significant stiffness. Of note he has had no show appointments for my visits and OT. If the patient has any new issues or concerns in the interim they are encouraged to call or return to clinic. The patient voiced understanding of the plan and all questions were answered. I spent approximately 30 minutes with Pao today and his QRC. GHT DISPATCHER documented in this encounter Plan of Treatment Upcoming Encounters Date Type Department Care Team (Late st Contact Info) Description 05/26/2024 8:15 AM FREIGHT DISPATCHER Appointment [place] [address] [facility] [address] [place] [address]. [place] [address] Kimmie Fuentes MD [address] [place] [address] 06/05/2024 9:00 AM CDT Appointment [place] [facility] [address] [facility] [place] [address] Elizabeth Fisher PA-C [address] [place] [address] Scheduled Orders Name Type Priority Associated Diagnoses Orde r Schedule MR Hand Lt WO IV Cont Imaging New Routine Hand pain, left Expected: 05/15/2024 (Approximate), Expires: 05/15/2025 documented as of this encounter Results * XR Hand Lt 3+ Views (05/15/2024 10:14 AM FREIGHT DISPATCHER) Anatomical Region Laterality Modality Upper Extremity, Hand Computed R adiography 05/15/2024 10:1 4 AM FREIGHT DISPATCHER Narrative 05/15/2024 11:21 AM FREIGHT DISPATCHER EXAM: XR HAND LT 3+ VIEWS LOCATION: [facility] DATE: 05/15/2024 INDICATION: Left hand finger injury pain, Pain in left hand COMPARISON: 12/06/2023 IMPRESSION: Postsurgical change amputation DIP joint of the second finger. Healing fracture fourth distal phalanx. Avulsion fracture at the fourth PIP joint again noted. No dislocation. Procedure Note Adilene Anguiano MD - 05/15/2024 EXAM: XR HAND LT 3+ VIEWS LOCATION: [facility] DATE: 05/15/2024 INDICATION: Left hand finger injury pain, Pain in left hand COMPARISON: 12/06/2023 IMPRESSION: Postsurgical change amputation DIP joint of the second finger.Healing fracture fourth distal phalanx. Avulsion fracture at the fourthPIP joint again noted. No dislocation. us Estephanie Matson PA-C RAD GD Final Result documented in this encounter Visit Diagnoses Diagnosis Hand pain, left- Primary Pain in limb Hand injury, left, subsequent encounter Hand pain, left Pain in limb documented in this encounter Care Teams Regional Retail Sales Manager Relationship Specialty Start Date End Date Radha Condon MBBS [address] [facility] [place] [address] PCP - General Internal Medicine 11/18/23 documented as of this encounter
--- OUTSIDE RECORDS SUMMARY | 2024-05-22 06:37 | XMS_ITS | Encounter Summary ---
Author Organization [facility] Address [address] [place] [address] Care Team Providers Care Fire Fighting Equipment Specialist Name Role Phone Radha Condon Primary Care Provider +1- [phone] Reason for Visit * Procedure/Equipment (Routine) - Incomplete Specialty Diagnoses / Procedures Referred By Contac t Referred To Contact Diagnoses Hand pain, left Procedures XR Hand Lt 3+ Views Estephanie Matson PA-C [address] [place] [address] Phone: tel: fax: Referral ID Status Reason Start Date Expiration Date V isits Requested Visits Authorized [id number] Incomplete 05/15/2024 08/14/2025 1 1 Encounter Details Date Type Department Care Team (Latest Contact Info) Description 05/15/2024 10:25 AM WEIGHTS AND MEASURES INSPECTOR Ancillary Procedure [facility] Radiology 435 [facility] [place] [address] Estephanie Matson PA-C [address] [place] [address] Hand pain, left Social History Tobacco Use Types Packs/Day Years [...] as of this encounter Plan of Treatment Upcoming Encounters Date Type Department Care Team (Late st Contact Info) Description 05/26/2024 8:15 AM WEIGHTS AND MEASURES INSPECTOR Appointment [place] [address] [facility] [address] [place] [address]. [place] [address] Kimmie Fuentes MD [address] [place] [address] 06/05/2024 9:00 AM CDT Appointment [place] [facility] [address] [place] [address] Elizabeth Fisher PA-C [address] [place] [address] documented as of this encounter Procedures Procedure Name Priority Date/Time Associated Diagnosis Comments XR HAND LT 3+ VIEWS Routine 05/15/2024 1 0:14 AM WEIGHTS AND MEASURES INSPECTOR Hand pain, left documented in this encounter Results * XR Hand Lt 3+ Views (05/15/2024 10:14 AM WEIGHTS AND MEASURES INSPECTOR) Anatomical Region Laterality Modality Upper Extremity, Hand Computed R adiography 05/15/2024 10:1 4 AM WEIGHTS AND MEASURES INSPECTOR Narrative 05/15/2024 11:21 AM WEIGHTS AND MEASURES INSPECTOR EXAM: XR HAND LT 3+ VIEWS LOCATION: [...] joint again noted. No dislocation. us Estephanie HACKETT GD Final Result documented in this encounter Visit Diagnoses Diagnosis Hand pain, left Pain in limb documented in this encounter Care Teams Fire Fighting Equipment Specialist Relationship Specialty Start Date End Date Radha Condon MBBS [address] [place] [address] [place] [address] PCP - General Internal Medicine 11/18/23 documented as of this encounter
--- OUTSIDE RECORDS SUMMARY | 2024-05-22 06:37 | XMS_ITS | Encounter Summary ---
Author Organization [employer] Address [address] [place] [address] Care Team Providers Care Biometrics Consultant Name Role Phone Radha Condon Primary Care Provider +1- [phone] Encounter Details Date Type Department Care Team (Latest Contact Info) Description 07/20/1997 Office Visit Richie Walton [facility] [address] [place] [address] Social History Tobacco Use Types Packs/Day Years Used Date Smoking Tobacco: Never Assessed Sex and Gender Information Value Date Recorded Sex Assigned at Not on file Legal Sex Male 4:56 AM CDT Gender Identity Not on file Sexual Orientation Not on file documented as of this encounter Progress Notes * Richie Walton - 07/20/1997 12:00 AM CDTS. 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 This has been addressed a number of times in the past but still bothers him. He has flare ups off and on over the past year. He is very active in sports, basketball, track, cross country and football amongst them. He describes the swelling and tenderness over the tibial tuberosity. His second concern was relative to his growth. Unfortunately we only have one height and weight in time both were at the 50th percentile today. O. Exam is limited to his knees. The left shows a little swelling and tenderness over the left tibial tuberosity. The right is unremarkable. The remainder of the knee exam including manipulation and compression of the patella. Palpation and movement of the knee joint, negative Philomena's, etc. were all unremarkable. It is hard to tell whether Leif is in a growth spurt but he has a typical profile of such an individual. A. 1) O/S disease. This was discussed and he was given an informational sheet relative to this including exercise and handling a few flare ups. Expected course discussed as well. 2) Growth. He is at the 50th percentile. We briefly discussed the family history and both parents are about average height although their families have taller people. This information was put in context. He seemed comfortable with this knowledge. He will return PRN or in about 6 months for another height and weight determination to figure a growth curve at that time. cc: documented in this encounter Plan of Treatment Upcoming Encounters Date Type Department Care Team (Late st Contact Info) Description 05/26/2024 8:15 AM IN ROOM DINING SERVER Appointment [facility] [address] [place] [address]. [place] [address] Kimmie Fuentes MD [address] [place] [address] 06/05/2024 9:00 AM CDT Appointment [place] [facility] [address] [place] [address] Elizabeth Fisher PA-C [address] [place] [address] documented as of this encounter Visit Diagnoses Not on filedocumented in this encounter Care Teams Biometrics Consultant Relationship Specialty Start Date End Date Radha Condon MBBS 0 [facility] [place] [address] PCP - General Internal Medicine 11/18/23 documented as of this encounter
--- NOTE | 2024-05-22 06:38 | ED.PSYCH ---
HPI - Psych General Chief Complaint: Psychiatric Problem/Disorder <Sveta Abreu MD - Last Filed: 05/24/24 00:15> Stated Complaint: mental health <Sveta Abreu MD - Last Filed: 05/24/24 00:15> Time Seen by Provider: 05/22/24 05:26 <Sveta Abreu MD - Last Filed: 05/24/24 00:15> Source: patient, EMS and police <Sveta Abreu MD - Last Filed: 05/24/24 00:15> Limitations: no limitations <vSeta Abreu MD - Last Filed: 05/24/24 00:15> History of Present Illness HPI Narrative: 38-year-old male with what sounds like a history of schizophrenia presents to the emergency department for evaluation of paranoia. [place] [address] from [place] which he reports that he lives in. When I ask where he was headed, he reports that he was just driving. He did not have a destination in mine. He was driving his own private vehicle. He reports that he thought someone had been following him with the intention to harm him. When I ask about who this was or if it is a person that is known to him, he denies this. He says that he hears whispering and shuffling sounds that someone is following and tracking him but does not know of any one's name or identity in particular. He does worry that they may harm his children. He does not have custody of his children, they live with their mother's. As he was driving, he called 911 at of fear for his own safety. Apparently critical access hospital patrol is similar with this individual as he has done this in the past. He is new to our health system and unfortunately we are not able to get any records through [facility] and do not have access to [facility] or [facility]. It sounds as though he was hospitalized at [facility] a few weeks ago. From tells me, he has been following up with a therapist and a psychiatrist and actually has a telehealth visit within a couple of hours. He is prescribed medication though he cannot remember what. It may be olanzapine. He reports that he has not slept for the last couple of days. He also tells me that he took about 13 20 mg Adderall tablets over the past few days as well. He states that he was taking these to ?focus better?, to be ?more aware and more focused?. He was hoping it would give him motivation. He reports that his contact at [facility] is ?Iliana?. Last visit was about 10 days ago. He denies any suicidal thoughts. He does report that he thinks someone is following him to hurt him but that this is been an ongoing issue for him. He does not have any prior history of suicide. He does report increased stress over the last year. It sounds like he lost the distal tip of his left index finger in an electrical accident. 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 His glove got caught in some sort of a machine, causing a severe crush injury to the finger tip. I do not have records on that either but does appears though this has healed well. He denies any recent fevers or illness. Other than the Adderall, he denies any illicit drug use. Denies any other hallucinogens. Is willing to do a blood test to look for medical causes and a drug screen today. He does not feel as though he is safe outside of the hospital due to fear that people are ?out to get him?. Denies any self injury or acute medical illness. Reports that all of his basic needs are met like housing, food, transportation. He was little agitated and irritable upon 1st arrival though he made no aggressive behaviors towards our staff. I was tied up with other patients so I ordered p.r.n. olanzapine 10 mg and p.r.n. Ativan 1 mg and asked the nurse to offer those to him prior to my interview. He did except these without any coercion. He is calm and informative at the time of my exam. Past medical history sounds like it is pertinent for schizophrenia but I cannot confirm the diagnosis. 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 He cannot list is medications for me but denies any allergies. We will attempt to get better records. ROS is notable for the paranoid feelings. Otherwise denies times 12 systems. <Sveta Abreu MD - Last Filed: 05/24/24 00:15> Related Data Home Medications: Home Medications ?Medication ?Instructions ?Recorded ?Confirmed cholecalciferol (vitamin D3) 25 DAILY 05/22/24 mcg (1,000 unit) tablet fluoxetine 40 mg capsule mg DAILY 05/22/24 hydroxyzine HCl 25 mg tablet mg 05/22/24 melatonin 5 mg tablet mg 05/22/24 olanzapine 10 mg tablet mg 05/22/24 <Sveta Abrue MD - Last Filed: 05/24/24 00:15> Allergies/Adverse Reactions: Allergies Allergy/AdvReac Type Severity Reaction Status Date / Time No Known Drug Allergies Allergy Verified 05/22/24 17:10 <Sveta Abreu MD - Last Filed: 05/24/24 00:15> PFSH PFSH Social History: Social History Smoking Status: Current every day smoker Non-prescribed substance use: denies use <Sveta Abreu MD - Last Filed: 05/24/24 00:15> Exam Const: Vital Signs, click to edit/add: Vital Signs - 24 hr 05/22/24 05:33 05/22/24 17:36 Temperature 99.9 F H 98.7 F Pulse Rate [Pulse Oximeter] 92 87 Respiratory Rate 16 17 Blood Pressure [Ri ght Upper Arm] 166/109 H 128/86 Pulse Oximetry 98 94 Oxygen Delivery Me thod Room Air Room Air <Sveta Abreu MD - Last Filed: 05/24/24 00:15> Vital Signs, click to edit/add: Vital Signs - 24 hr 05/22/24 05:33 05/22/24 17:36 Temperature 99.9 F H 98.7 F Pulse Rate [Pulse Oximeter] 92 87 Respiratory Rate 16 17 Blood Pressure [Ri ght Upper Arm] 166/109 H 128/86 Pulse Oximetry 98 94 Oxygen Delivery Me thod Room Air Room Air <Liza Cruz MD - Last Filed: 05/22/24 13:45> Vital Signs, click to edit/add: Vital Signs - 24 hr 05/22/24 05:33 05/22/24 17:36 Temperature 99.9 F H 98.7 F Pulse Rate [Pulse Oximeter] 92 87 Respiratory Rate 16 17 Blood Pressure [Ri ght Upper Arm] 166/109 H 128/86 Pulse Oximetry 98 94 Oxygen Delivery Me thod Room Air Room Air <Geraldo Hidalgo MD - Last Filed: 05/22/24 20:05> Vital Signs, click to edit/add: Vital Signs - 24 hr 05/22/24 05:33 05/22/24 17:36 Temperature 99.9 F H 98.7 F Pulse Rate [Pulse Oximeter] 92 87 Respiratory Rate 16 17 Blood Pressure [Ri ght Upper Arm] 166/109 H 128/86 Pulse Oximetry 98 94 Oxygen Delivery Me thod Room Air Room Air <Alicia Marquez MD - Last Filed: 05/22/24 22:14> Documenting provider has reviewed patient's vital signs: yes <Sveta Abreu MD - Last Filed: 05/24/24 00:15> Common normals: no apparent distress and alert <Sveta Abreu MD - Last Filed: 05/24/24 00:15> General appearance: well kempt <Sveta Abreu MD - Last Filed: 05/24/24 00:15> Other: Paranoid but redirectable. No agitation or hostility at the time of my exam. Appears well nourished, well hydrated, well groomed and clean. <Sveta Abreu MD - Last Filed: 05/24/24 00:15> HENMT: Common normals: normocephalic, moist oral mucous membranes, oropharynx normal and dentition normal <Sveta Abreu MD - Last Filed: 05/24/24 00:15> Head and scalp: normocephalic <Sveta Abreu MD - Last Filed: 05/24/24 00:15> Face and sinus: normal facial exam <Sveta Abreu MD - Last Filed: 05/24/24 00:15> Mouth: oral and palatal mucosa normal <Sveta Abreu MD - Last Filed: 05/24/24 00:15> Eye: Common normals: conjunctivae normal <Sveta Abreu MD - Last Filed: 05/24/24 00:15> General eye: normal appearance of both eyes <MD Mayur Day Last Filed: 05/24/24 00:15> Conjunctiva: conjunctiva(e) normal <MD Mayur Day Last Filed: 05/24/24 00:15> Neck & C-Spine: Common normals: full ROM and no lymphadenopathy <MD Mayur Day Last Filed: 05/24/24 00:15> Resp: Common normals: normal respiratory effort, no use of accessory muscles and clear to auscultation bilaterally <MD Mayur Day Last Filed: 05/24/24 00:15> Effort & inspection: able to speak in complete sentences <MD Mayur Day Last Filed: 05/24/24 00:15> Auscultation: clear to auscultation bilaterally <MD Mayur Day Last Filed: 05/24/24 00:15> Cardio: Common normals: regular rate, regular rhythm, S1 normal heart sound, S2 normal heart sound and no murmurs <MD Mayur Day Last Filed: 05/24/24 00:15> Rate: regular rate <MD Mayur Day Last Filed: 05/24/24 00:15> Rhythm: regular rhythm <MD Mayur Day Last Filed: 05/24/24 00:15> Heart sounds: S1 normal and S2 normal <MD Mayur Day Last Filed: 05/24/24 00:15> GI: Common normals: Normal to inspection, nondistended, normoactive bowel sounds present, soft to palpation, non-tender, no hepatosplenomegaly and no masses <MD Mayur Day Last Filed: 05/24/24 00:15> Palpation: soft and no hepatosplenomegaly <MD Mayur Day Last Filed: 05/24/24 00:15> Extremity: Common normals: normal capillary refill <MD Mayur Day Last Filed: 05/24/24 00:15> Other: 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 No other signs of injury. <MD Mayur Day Last Filed: 05/24/24 00:15> Neuro: Sensorium/orientation: alert <MD Mayur Day Last Filed: 05/24/24 00:15> Speech: speech normal <MD Mayur Day Last Filed: 05/24/24 00:15> Motor exam: no tremor noted and no movement abnormalities noted <MD Mayur Day Last Filed: 05/24/24 00:15> Psych: Appearance: well kempt <MD Mayur Day Last Filed: 05/24/24 00:15> Attitude: guarded <MD Mayur Day Last Filed: 05/24/24 00:15> Activity/motor behavior: avoids eye contact <MD Mayur Day Last Filed: 05/24/24 00:15> Mood and affect: anxious <MD Mayur Day Last Filed: 05/24/24 00:15> Thought content: no suicidality and no homicidality <MD Mayur Day Last Filed: 05/24/24 00:15> Attention/concentration: attention grossly intact <MD Mayur Day Last Filed: 05/24/24 00:15> Memory/cognition: memory grossly intact <MD Mayur Day Last Filed: 05/24/24 00:15> Insight: fair <MD Mayur Day Last Filed: 05/24/24 00:15> Judgement: fair <MD Mayur Day Last Filed: 05/24/24 00:15> Skin: Common normals: no rashes or lesions noted <MD Mayur Day Last Filed: 05/24/24 00:15> General skin exam: no rashes or lesions noted <MD Mayur Day Last Filed: 05/24/24 00:15> Course Course ED Course: 38-year-old male with paranoid delusions and insomnia after taking large amounts of Adderall. Sounds as though there is some baseline schizophrenia and possibly some underlying ADHD that he is recently been tested for with his psychiatry team. He actually has an appointment scheduled for follow-up here in less than 2 hours. We will obtain basic labs to ensure normal metabolic function, drug screen to ensure that it really was just Adderall that he was taken in not other hallucinogens. He is calm and cooperative after electively taking the 10 mg of olanzapine and 1 mg of Ativan that were offered. I do think that there is underlying chronic mental health issues but I think that today's episode was likely an exacerbation induced by stimulant and poor sleep. We will try to make contact with his mental health team and if not, telehealth assessment. He will be allowed to rest in the interim while we sort out these details. <Sveta Abreu MD - Last Filed: 05/24/24 00:15> Reevaluation(s) Time of Reevaluation #1: 10:24 <Liza Cruz MD - Last Filed: 05/22/24 13:45> Reevaluation #1: Patient is reportedly still extremely groggy and sleepy. He did not wake up for his own mental health telehealth visit. He had not been sleeping due to the Adderall ingestion. Still awaiting urine toxicology collection. Patient is going to need to sleep longer, probably very advantageous for his mental health to get him some sleep. Once he is awakening on his own, will likely just due our telehealth evaluation. We did inquire at [facility] where he does his mental health care if someone would speak with me, the person on the phone with nursing staff would not put is through with anyone, stated they would just cancel his appointment. Thus, cannot talk with his routine treatment providers. Will see how he is doing after he sleeps. <Liza Cruz MD - Last Filed: 05/22/24 13:45> Reevaluation #2: 16:45 on 05/22. Patient signed out to Dr. Hidalgo by Dr. Calvo. Patient had received Zyprexa and Ativan on the shiftman early this morning after coming in. Had been sleeping most of the day and finally has been awake enough to undergo a mental health assessment. He was seen by the nurse from [facility]. Discussed with [facility] on the phone. They report that the patient is cooperative but very slow to respond. They wonder if he may be responding to external stimuli. He does still seem to be having auditory and visual hallucinations and also seems delusional and paranoid that people are following him. Patient says that he would not mind if he was but that he is not actively suicidal. Overall has a low suicide risk score. The biggest concern is the fact that he is still paranoid and hallucinating. He is not angry or aggressive. [facility] recommends inpatient placement because he is not safe to discharge home. At this point the patient has been medically cleared for inpatient mental health admission. Urine drug screen was positive for amphetamines which may be related to the Adderall he had been taking and also benzodiazepines, but he had received Ativan prior to giving the urine sample here in the ER. Tylenol and salicylate levels are negative. Blood sugar normal. He had a white count of 15. Presented with low-grade temperature of 99.9? but since then has been afebrile. Has no other symptoms of infection such as headache, cough. He is not currently on a hold but would be holdable if he remains paranoid, psychotic, with hallucinations. We are currently awaiting acceptance. He is being assessed by [facility] as well as other facilities. Discussed with my oncoming partner, Dr. Mcgovern. She will oversee the patient's ongoing stay here in the ER <Geraldo Hidalgo MD - Last Filed: 05/22/24 20:05> Consultations Consultation #1: Michelle from [facility] attempted to do an assessment on patient. He answered about 2 questions and then fell asleep. She called nursing staff and they came into awaken him. He then just stated that he was not in a good heads paced answer questions in proceeded to fall back asleep. He would not answer anything further. Our plan at this point is to allow him to sleep if he was still that tired, we will call them back in reassess when he is awakening on his own terms. <Liza Cruz MD - Last Filed: 05/22/24 13:45> Time: 13:43 <Liza Cruz MD - Last Filed: 05/22/24 13:45> Vital Signs Vital signs: Initial Vital Signs Temperature 99.9 F H 05/22/24 05:33 Temperature Source Temporal Artery Scan 05/22/24 05:33 Pulse Rate 92 05/22/24 05:33 Respiratory Rate 16 05/22/24 05:33 Blood Pressure 166/109 H 05/22/24 05:33 Blood Pressure Mean 128 H 05/22/24 05:33 Blood Pressure Position Supine 05/22/24 05:33 Pulse Oximetry 98 05/22/24 05:33 Oxygen Delivery Method Room Air 05/22/24 05:33 Vital Signs Temperature 99.9 F H 05/22/24 05:33 Pulse Rate 92 05/22/24 05:33 Respiratory Rate 16 05/22/24 05:33 Blood Pressure 166/109 H 05/22/24 05:33 Pulse Oximetry 98 05/22/24 05:33 Oxygen Delivery Method Room Air 05/22/24 05:33 Temperature 98.7 F 05/22/24 17:36 Pulse Rate 87 05/22/24 17:36 Respiratory Rate 17 05/22/24 17:36 Blood Pressure 128/86 05/22/24 17:36 Pulse Oximetry 94 05/22/24 17:36 Oxygen Delivery Method Room Air 05/22/24 17:36 <Sveta Abreu MD - Last Filed: 05/24/24 00:15> Initial Vital Signs Temperature 99.9 F H 05/22/24 05:33 Temperature Source Temporal Artery Scan 05/22/24 05:33 Pulse Rate 92 05/22/24 05:33 Respiratory Rate 16 05/22/24 05:33 Blood Pressure 166/109 H 05/22/24 05:33 Blood Pressure Mean 128 H 05/22/24 05:33 Blood Pressure Position Supine 05/22/24 05:33 Pulse Oximetry 98 05/22/24 05:33 Oxygen Delivery Method Room Air 05/22/24 05:33 Vital Signs Temperature 99.9 F H 05/22/24 05:33 Pulse Rate 92 05/22/24 05:33 Respiratory Rate 16 05/22/24 05:33 Blood Pressure 166/109 H 05/22/24 05:33 Pulse Oximetry 98 05/22/24 05:33 Oxygen Delivery Method Room Air 05/22/24 05:33 Temperature 98.7 F 05/22/24 17:36 Pulse Rate 87 05/22/24 17:36 Respiratory Rate 17 05/22/24 17:36 Blood Pressure 128/86 05/22/24 17:36 Pulse Oximetry 94 05/22/24 17:36 Oxygen Delivery Method Room Air 05/22/24 17:36 <Liza Cruz MD - Last Filed: 05/22/24 13:45> Initial Vital Signs Temperature 99.9 F H 05/22/24 05:33 Temperature Source Temporal Artery Scan 05/22/24 05:33 Pulse Rate 92 05/22/24 05:33 Respiratory Rate 16 05/22/24 05:33 Blood Pressure 166/109 H 05/22/24 05:33 Blood Pressure Mean 128 H 05/22/24 05:33 Blood Pressure Position Supine 05/22/24 05:33 Pulse Oximetry 98 05/22/24 05:33 Oxygen Delivery Method Room Air 05/22/24 05:33 Vital Signs Temperature 99.9 F H 05/22/24 05:33 Pulse Rate 92 05/22/24 05:33 Respiratory Rate 16 05/22/24 05:33 Blood Pressure 166/109 H 05/22/24 05:33 Pulse Oximetry 98 05/22/24 05:33 Oxygen Delivery Method Room Air 05/22/24 05:33 Temperature 98.7 F 05/22/24 17:36 Pulse Rate 87 05/22/24 17:36 Respiratory Rate 17 05/22/24 17:36 Blood Pressure 128/86 05/22/24 17:36 Pulse Oximetry 94 05/22/24 17:36 Oxygen Delivery Method Room Air 05/22/24 17:36 <Geraldo Hidalgo MD - Last Filed: 05/22/24 20:05> Initial Vital Signs Temperature 99.9 F H 05/22/24 05:33 Temperature Source Temporal Artery Scan 05/22/24 05:33 Pulse Rate 92 05/22/24 05:33 Respiratory Rate 16 05/22/24 05:33 Blood Pressure 166/109 H 05/22/24 05:33 Blood Pressure Mean 128 H 05/22/24 05:33 Blood Pressure Position Supine 05/22/24 05:33 Pulse Oximetry 98 05/22/24 05:33 Oxygen Delivery Method Room Air 05/22/24 05:33 Vital Signs Temperature 99.9 F H 05/22/24 05:33 Pulse Rate 92 05/22/24 05:33 Respiratory Rate 16 05/22/24 05:33 Blood Pressure 166/109 H 05/22/24 05:33 Pulse Oximetry 98 05/22/24 05:33 Oxygen Delivery Method Room Air 05/22/24 05:33 Temperature 98.7 F 05/22/24 17:36 Pulse Rate 87 05/22/24 17:36 Respiratory Rate 17 05/22/24 17:36 Blood Pressure 128/86 05/22/24 17:36 Pulse Oximetry 94 05/22/24 17:36 Oxygen Delivery Method Room Air 05/22/24 17:36 <Alicia Marquez MD - Last Filed: 05/22/24 22:14> Medications Administered Medications: Discontinued Medications Generic Name Dose Route Start Last Admin Trade Name Freq PRN Reason Stop Dose Admin Lorazepam 1 mg 05/22/24 05:23 05/22/24 06:00 Lorazepam 1 Mg Tablet PO 05/22/24 05:24 1 mg ONCE ONE Administration Olanzapine 10 mg 05/22/24 05:23 05/22/24 06:00 Olanzapine 5 Mg Tab.Rapdis PO 05/22/24 05:24 10 mg ONCE ONE Administration <Sveta Abreu MD - Last Filed: 05/24/24 00:15> Discontinued Medications Generic Name Dose Route Start Last Admin Trade Name Freq PRN Reason Stop Dose Admin Lorazepam 1 mg 05/22/24 05:23 05/22/24 06:00 Lorazepam 1 Mg Tablet PO 05/22/24 05:24 1 mg ONCE ONE Administration Olanzapine 10 mg 05/22/24 05:23 05/22/24 06:00 Olanzapine 5 Mg Tab.Rapdis PO 05/22/24 05:24 10 mg ONCE ONE Administration <Liza Cruz MD - Last Filed: 05/22/24 13:45> Discontinued Medications Generic Name Dose Route Start Last Admin Trade Name Freq PRN Reason Stop Dose Admin Lorazepam 1 mg 05/22/24 05:23 05/22/24 06:00 Lorazepam 1 Mg Tablet PO 05/22/24 05:24 1 mg ONCE ONE Administration Olanzapine 10 mg 05/22/24 05:23 05/22/24 06:00 Olanzapine 5 Mg Tab.Rapdis PO 05/22/24 05:24 10 mg ONCE ONE Administration <Geraldo Hidalgo MD - Last Filed: 05/22/24 20:05> Discontinued Medications Generic Name Dose Route Start Last Admin Trade Name Harshal PRN Reason Stop Dose Admin Lorazepam 1 mg 05/22/24 05:23 05/22/24 06:00 Lorazepam 1 Mg Tablet PO 05/22/24 05:24 1 mg ONCE ONE Administration Olanzapine 10 mg 05/22/24 05:23 05/22/24 06:00 Olanzapine 5 Mg Tab.Rapdis PO 05/22/24 05:24 10 mg ONCE ONE Administration <Alicia Marquez MD - Last Filed: 05/22/24 22:14> MDM - Psych MDM Narrative Medical decision making narrative: Patient was signed out to me by my partner Dr. Hidalgo. Patient has been cooperative tonight. Vital signs are within normal limits. Patient [facility] been [facility]. Will be placed on transport Hospital home only. He has been cooperative. Patient is placed on a transport hold. He will be going ground BLS ambulance. <Alicia Marquez MD - Last Filed: 05/22/24 22:14> Differential Diagnosis Differential diagnosis: Likely acute psychosis, chronic schizophrenia, bipolar disorder, drug-induced psychotic disorder and acute anxiety <Sveta Abreu MD - Last Filed: 05/24/24 00:15> Lab Data Attestation: I reviewed the patient's lab results. <Sveta Abreu MD - Last Filed: 05/24/24 00:15> Lab results narrative: Mild leukocytosis of uncertain etiology, labs are otherwise reassuring. Still awaiting drug screen, expecting to be positive for amphetamines based on his use of Adderall. <Sveta Abreu MD - Last Filed: 05/24/24 00:15> Labs: Lab Results 05/22/24 05/22/24 05/22/24 Range/Units 06:30 06:37 13:23 WBC 15.65 H (4.50-11.00) K/uL RBC 5.27 (4.30-5.90) m/uL Hgb 14.4 (13.5-17.5) gm/dL Hct 43.3 (37.0-53.0) % MCV 82 (80-100) fL MCH 27 (26-34) pg MCHC 33 (32-36) gm/dL RDW Coeff of Mariel 13.1 (11.5-15.5) % Plt Count 330 (140-440) K/uL Neut % (Auto) 78.2 H (42.0-72.0) % Lymph % (Auto) 16.5 L (20-44) % [place] % (Auto) 4.9 (0.0-11.0) % Eos % (Auto) 0.1 (0.0-7.0) % Baso % (Auto) 0.1 (0.0-3.0) % Neut # (Auto) 12.20 H (1.7-7.0) K/uL Lymph # (Auto) 2.60 (0.90-2.90) K/uL [place] # (Auto) 0.80 (0.00-0.90) K/UL Eos # (Auto) 0.00 (0.00-0.50) K/uL Baso # (Auto) 0.00 (0.00-0.30) K/uL Abs Immat Gran (auto) 0.00 (0.00-0.30) K/uL Imm/Tot Granulo (auto) 0.2 % Sodium 136 (135-149) mmol/L Potassium 4.1 (3.6-5.1) mmol/L Chloride 104 (96-114) mmol/L Carbon Dioxide 22 (20-32) mmol/L Anion Gap 10 (7-15) mEq/L BUN 9 (5-24) mg/dL Creatinine 0.9 (0.5-1.5) mg/dL Estimated GFR 111 ml/min Glucose 123 H (60-115) mg/dL Calcium 9.4 (8.4-10.6) mg/dL Salicylates < 1.0 L (1.0-10) mg/dL Urine Opiates Screen Negative (Negative) Ur Oxycodone Screen Negative (Negative) Urine Methadone Screen Negative (Negative) Acetaminophen < 10.0 L (10.0-30.0) ug/mL Ur Barbiturates Screen Negative (Negative) U Tricyclic Antidepress Negative (Negative) Ur Phencyclidine Scrn Negative (Negative) Ur Amphetamines Screen POSITIVE A (Negative) U Methamphetamines Scrn Negative (Negative) U Benzodiazepines Scrn POSITIVE A (Negative) Urine Cocaine Screen Negative (Negative) U Marijuana (THC) Screen Negative (Negative) Ur Drug Screen Comment See Note Ethyl Alcohol < 0.01 L (0.01-0.03) % SARS-CoV-2 (PCR) Negative SARS-CoV-2 (Negative) <Sveta Abreu MD - Last Filed: 05/24/24 00:15> Lab Results 05/22/24 05/22/24 05/22/24 Range/Units 06:30 06:37 13:23 WBC 15.65 H (4.50-11.00) K/uL RBC 5.27 (4.30-5.90) m/uL Hgb 14.4 (13.5-17.5) gm/dL Hct 43.3 (37.0-53.0) % MCV 82 (80-100) fL MCH 27 (26-34) pg MCHC 33 (32-36) gm/dL RDW Coeff of Mariel 13.1 (11.5-15.5) % Plt Count 330 (140-440) K/uL Neut % (Auto) 78.2 H (42.0-72.0) % Lymph % (Auto) 16.5 L (20-44) % [place] % (Auto) 4.9 (0.0-11.0) % Eos % (Auto) 0.1 (0.0-7.0) % Baso % (Auto) 0.1 (0.0-3.0) % Neut # (Auto) 12.20 H (1.7-7.0) K/uL Lymph # (Auto) 2.60 (0.90-2.90) K/uL [place] # (Auto) 0.80 (0.00-0.90) K/UL Eos # (Auto) 0.00 (0.00-0.50) K/uL Baso # (Auto) 0.00 (0.00-0.30) K/uL Abs Immat Gran (auto) 0.00 (0.00-0.30) K/uL Imm/Tot Granulo (auto) 0.2 % Sodium 136 (135-149) mmol/L Potassium 4.1 (3.6-5.1) mmol/L Chloride 104 (96-114) mmol/L Carbon Dioxide 22 (20-32) mmol/L Anion Gap 10 (7-15) mEq/L BUN 9 (5-24) mg/dL Creatinine 0.9 (0.5-1.5) mg/dL Estimated GFR 111 ml/min Glucose 123 H (60-115) mg/dL Calcium 9.4 (8.4-10.6) mg/dL Salicylates < 1.0 L (1.0-10) mg/dL Urine Opiates Screen Negative (Negative) Ur Oxycodone Screen Negative (Negative) Urine Methadone Screen Negative (Negative) Acetaminophen < 10.0 L (10.0-30.0) ug/mL Ur Barbiturates Screen Negative (Negative) U Tricyclic Antidepress Negative (Negative) Ur Phencyclidine Scrn Negative (Negative) Ur Amphetamines Screen POSITIVE A (Negative) U Methamphetamines Scrn Negative (Negative) U Benzodiazepines Scrn POSITIVE A (Negative) Urine Cocaine Screen Negative (Negative) U Marijuana (THC) Screen Negative (Negative) Ur Drug Screen Comment See Note Ethyl Alcohol < 0.01 L (0.01-0.03) % SARS-CoV-2 (PCR) Negative SARS-CoV-2 (Negative) <Liza Cruz MD - Last Filed: 05/22/24 13:45> Lab Results 05/22/24 05/22/24 05/22/24 Range/Units 06:30 06:37 13:23 WBC 15.65 H (4.50-11.00) K/uL RBC 5.27 (4.30-5.90) m/uL Hgb 14.4 (13.5-17.5) gm/dL Hct 43.3 (37.0-53.0) % MCV 82 (80-100) fL MCH 27 (26-34) pg MCHC 33 (32-36) gm/dL RDW Coeff of Mariel 13.1 (11.5-15.5) % Plt Count 330 (140-440) K/uL Neut % (Auto) 78.2 H (42.0-72.0) % Lymph % (Auto) 16.5 L (20-44) % [place] % (Auto) 4.9 (0.0-11.0) % Eos % (Auto) 0.1 (0.0-7.0) % Baso % (Auto) 0.1 (0.0-3.0) % Neut # (Auto) 12.20 H (1.7-7.0) K/uL Lymph # (Auto) 2.60 (0.90-2.90) K/uL [place] # (Auto) 0.80 (0.00-0.90) K/UL Eos # (Auto) 0.00 (0.00-0.50) K/uL Baso # (Auto) 0.00 (0.00-0.30) K/uL Abs Immat Gran (auto) 0.00 (0.00-0.30) K/uL Imm/Tot Granulo (auto) 0.2 % Sodium 136 (135-149) mmol/L Potassium 4.1 (3.6-5.1) mmol/L Chloride 104 (96-114) mmol/L Carbon Dioxide 22 (20-32) mmol/L Anion Gap 10 (7-15) mEq/L BUN 9 (5-24) mg/dL Creatinine 0.9 (0.5-1.5) mg/dL Estimated GFR 111 ml/min Glucose 123 H (60-115) mg/dL Calcium 9.4 (8.4-10.6) mg/dL Salicylates < 1.0 L (1.0-10) mg/dL Urine Opiates Screen Negative (Negative) Ur Oxycodone Screen Negative (Negative) Urine Methadone Screen Negative (Negative) Acetaminophen < 10.0 L (10.0-30.0) ug/mL Ur Barbiturates Screen Negative (Negative) U Tricyclic Antidepress Negative (Negative) Ur Phencyclidine Scrn Negative (Negative) Ur Amphetamines Screen POSITIVE A (Negative) U Methamphetamines Scrn Negative (Negative) U Benzodiazepines Scrn POSITIVE A (Negative) Urine Cocaine Screen Negative (Negative) U Marijuana (THC) Screen Negative (Negative) Ur Drug Screen Comment See Note Ethyl Alcohol < 0.01 L (0.01-0.03) % SARS-CoV-2 (PCR) Negative SARS-CoV-2 (Negative) <Geraldo Hidalgo MD - Last Filed: 05/22/24 20:05> Lab Results 05/22/24 05/22/24 05/22/24 Range/Units 06:30 06:37 13:23 WBC 15.65 H (4.50-11.00) K/uL RBC 5.27 (4.30-5.90) m/uL Hgb 14.4 (13.5-17.5) gm/dL Hct 43.3 (37.0-53.0) % MCV 82 (80-100) fL MCH 27 (26-34) pg MCHC 33 (32-36) gm/dL RDW Coeff of Mariel 13.1 (11.5-15.5) % Plt Count 330 (140-440) K/uL Neut % (Auto) 78.2 H (42.0-72.0) % Lymph % (Auto) 16.5 L (20-44) % [place] % (Auto) 4.9 (0.0-11.0) % Eos % (Auto) 0.1 (0.0-7.0) % Baso % (Auto) 0.1 (0.0-3.0) % Neut # (Auto) 12.20 H (1.7-7.0) K/uL Lymph # (Auto) 2.60 (0.90-2.90) K/uL [place] # (Auto) 0.80 (0.00-0.90) K/UL Eos # (Auto) 0.00 (0.00-0.50) K/uL Baso # (Auto) 0.00 (0.00-0.30) K/uL Abs Immat Gran (auto) 0.00 (0.00-0.30) K/uL Imm/Tot Granulo (auto) 0.2 % Sodium 136 (135-149) mmol/L Potassium 4.1 (3.6-5.1) mmol/L Chloride 104 (96-114) mmol/L Carbon Dioxide 22 (20-32) mmol/L Anion Gap 10 (7-15) mEq/L BUN 9 (5-24) mg/dL Creatinine 0.9 (0.5-1.5) mg/dL Estimated GFR 111 ml/min Glucose 123 H (60-115) mg/dL Calcium 9.4 (8.4-10.6) mg/dL Salicylates < 1.0 L (1.0-10) mg/dL Urine Opiates Screen Negative (Negative) Ur Oxycodone Screen Negative (Negative) Urine Methadone Screen Negative (Negative) Acetaminophen < 10.0 L (10.0-30.0) ug/mL Ur Barbiturates Screen Negative (Negative) U Tricyclic Antidepress Negative (Negative) Ur Phencyclidine Scrn Negative (Negative) Ur Amphetamines Screen POSITIVE A (Negative) U Methamphetamines Scrn Negative (Negative) U Benzodiazepines Scrn POSITIVE A (Negative) Urine Cocaine Screen Negative (Negative) U Marijuana (THC) Screen Negative (Negative) Ur Drug Screen Comment See Note Ethyl Alcohol < 0.01 L (0.01-0.03) % SARS-CoV-2 (PCR) Negative SARS-CoV-2 (Negative) <Alicia Marquez MD - Last Filed: 05/22/24 22:14> Discharge Plan Discharge Clinical Impression: Paranoid, Substance induced mood disorder <Sveta Abreu MD - Last Filed: 05/24/24 00:15> Patient Disposition: General Acute Hospital <Sveta Abreu MD - Last Filed: 05/24/24 00:15> Condition: Improved <Sveta Abreu MD - Last Filed: 05/24/24 00:15> Additional Instructions: Transferred to [facility] <Sveta Abreu MD - Last Filed: 05/24/24 00:15>
--- OUTSIDE RECORDS SUMMARY | 2024-05-22 06:38 | XMS_ITS | Encounter Summary ---
Author Organization [facility] Address [address] [place] [address] Care Team Providers Care Auto Washer Name Role Phone Radha Condon Primary Care Provider +1- [phone] Encounter Details Date Type Department Care Team (Latest Contact Info) Description 02/04/1998 Office Visit Pablo Bowman MD [address] [place], [place] [id number] Social History Tobacco Use Types Packs/Day Years Used Date Smoking Tobacco: Never Assessed Sex and Gender Information Value Date Recorded Sex Assigned at Not on file Legal Sex Male 4:56 AM CDT Gender Identity Not on file Sexual Orientation Not on file documented as of this encounter Progress Notes * Pablo Bowman - 02/04/1998 12:00 AM CSTS. Here for follow-up of his persistent illness. Persistent fever and cough. Started to vomit on Wed. and then diarrhea started as well. Just does not seem to be better. He has had a couple normal blood counts. Using Tylenol prn and Robitussin prn. No med. allergies. O. Wt. 112. Temp. 100.5. Eyes neg.. He does not appear clinically dehydrated. TM's clear. Throat not significantly red. No lymph adenopathy. Some loose cough but no rales or wheezes. Abdomen neg.. No rashes. Considering prolonged illness over 8-10 days will continue with more workup today. CBC ordered .This was normal. Normal hgb.. Normal platelets. UA neg.. Sed. rate 32. Because of vomiting liver function tests ordered and will be sent. Viral culture done in the chance that this is one of the new flu illnesses going through the community. CXR also done and showed a right middle lobe infiltrate. Suspect that this is a secondary infection and not the sole cause of her symptoms for the past 10 days. Viral culture pending. A. Lower respiratory infection with suspicion of right middle lobe pneumonia developing. I think that this is secondary to an underlying and persistent viral illness considering the normal white count. P. Discussed placing on antibiotic to deal with lung findings. Will need to stop sooner if he is doing well but diarrhea is a major issue. Place on Amox. 250 mg. caps. two caps in the morning and one in the afternoon and one in the evening x 10 days. Cont. Tylenol for a couple of days to give this a chance to work. Recheck if worsening. Daytime phone number is [phone]. Will call prn. cc: TECHNIC ASSEMBLER documented in this encounter Plan of Treatment Upcoming Encounters Date Type Department Care Team (Late st Contact Info) Description 05/26/2024 8:15 AM PYROTECHNIC ASSEMBLER Appointment [facility] [address] [place] [address]. [place] [address] Kimmie Fuentes MD [address] [place] [address] 06/05/2024 9:00 AM CDT Appointment [place] [facility] [address] [place] [address] Elizabeth Fisher PA-C [address] [place] [address] documented as of this encounter Visit Diagnoses Not on filedocumented in this encounter Care Teams Auto Washer Relationship Specialty Start Date End Date Radha Condon MBBS [address] [place] [address] [place] [address] PCP - General Internal Medicine 11/18/23 documented as of this encounter
--- OUTSIDE RECORDS SUMMARY | 2024-05-22 06:38 | XMS_ITS | Encounter Summary ---
Author Organization [facility] Address [address] [place] [address] Care Team Providers Care Dry Chain Worker Name Role Phone Radha Condon Primary Care Provider +1- [phone] Encounter Details Date Type Department Care Team (Latest Contact Info) Description 02/08/1998 Office Visit Richie Walton [facility] [address] [place] [address] Social History Tobacco Use Types Packs/Day Years Used Date Smoking Tobacco: Never Assessed Sex and Gender Information Value Date Recorded Sex Assigned at Not on file Legal Sex Male 4:56 AM CDT Gender Identity Not on file Sexual Orientation Not on file documented as of this encounter Progress Notes * Richie Walton - 02/08/1998 12:00 AM CSTS. Comes for follow-up previously diagnosed pneumonia. This infectious process started on a visit 01/29 and continues on 02/01 and 02/04. He apparently most recently was on Amox. which was increased to 500 mg. t.i.d. which she has had for three days. Earlier this week had left ear pain but this is gone the past two days. O. NAD. Left TM shows minimal erythema. Light reflex present. No fluid noted. Rt. side looks normal. No significant nodes. Lungs clear. Good breath sounds. No rales, rhonchi or wheezing. A. Resolving otitis media and pneumonia. P. Because his dose has been increased they will run out of Amox. and they were given three days of 500 mg. b.i.d. to be used at the end of the treatment regimen. In the meantime Pao admits to feeling quite a bit better and he can start ambulating normally. cc: documented in this encounter Plan of Treatment Upcoming Encounters Date Type Department Care Team (Late st Contact Info) Description 05/26/2024 8:15 AM DATA CONTROL ASSISTANT Appointment [facility] [address] [place] [address]. [place] [address] Kimmie Fuentes MD [address] [place] [address] 06/05/2024 9:00 AM CDT Appointment [place] [facility] [address] [place] [address] Elizabeth Fisher PA-C [address] [place] [address] documented as of this encounter Visit Diagnoses Not on filedocumented in this encounter Care Teams Dry Chain Worker Relationship Specialty Start Date End Date Radha Condon MBBS 0 [facility] [place] [address] PCP - General Internal Medicine 11/18/23 documented as of this encounter
[2024-05-22 06:44] LABS: Basophils Percent Auto 0.1 % (0.0-3.0); Eosinophils Percent Auto 0.1 % (0.0-7.0); Hematocrit 43.3 % (37.0-53.0); Hemoglobin* 14.4 gm/dL (13.5-17.5); Immature Granulocytes Pct Auto 0.2 %; Lymphocytes Percent Auto 16.5 % (20-44); Mean Corpuscular HGB Conc 33 gm/dL (32-36); Mean Corpuscular Hemoglobin 27 pg (26-34); Mean Corpuscular Volume 82 fL (80-100); Monocytes Percent Auto 4.9 % (0.0-11.0); Neutrophils Percent Auto 78.2 % (42.0-72.0); Platelet Count* 330 K/uL (140-440); RDW Coefficient of Variation % 13.1 % (11.5-15.5); Red Blood Count 5.27 m/uL (4.30-5.90); White Blood Count* 15.65 K/uL (4.50-11.00)
[2024-05-22 06:49] LABS: Slide Review Reflex No
[2024-05-22 07:03] LABS: Chloride* 104 mmol/L (96-114); Potassium* 4.1 mmol/L (3.6-5.1); Sodium* 136 mmol/L (135-149)
[2024-05-22 07:06] LABS: Anion Gap 10 mEq/L (7-15); Blood Urea Nitrogen* 9 mg/dL (5-24); Carbon Dioxide* 22 mmol/L (20-32); Creatinine* 0.9 mg/dL (0.5-1.5); Estimated Glomerular Filt Rate 111 ml/min
[2024-05-22 07:07] LABS: Acetaminophen* < 10.0 ug/mL (10.0-30.0); Calcium* 9.4 mg/dL (8.4-10.6); Ethanol* < 0.01 % (0.01-0.03); Glucose* 123 mg/dL (60-115); Salicylate* < 1.0 mg/dL (1.0-10)
[2024-05-22 07:26] LABS: SARS PCR* Negative SARS-CoV-2 (Negative)
[2024-05-22 13:36] LABS: Amphetamine Screen Urine POSITIVE (Negative); Barbiturate Screen Urine Negative (Negative); Benzodiazepines Screen Urine POSITIVE (Negative); Cannabinoid Screen Urine Negative (Negative); Cocaine Screen Urine Negative (Negative); Methadone Screen Urine Negative (Negative); Methamphetamines Screen Urine Negative (Negative); Opiate Screen Urine Negative (Negative); Oxycodone Screen Urine Negative (Negative); Phencyclidine Screen Urine Negative (Negative); Tricyclic Antidepressant Urine Negative (Negative)
[2024-05-22 17:36] VITALS: BP 128/86; PULSE 87; RESP 17; TEMP 37.1; O2SAT 94
== END 2024-05-22 22:30 | disposition short-term general hospital (02) ==
PROVIDERS: Family Medicine; Emergency Provider Family Medicine
DX: F22 Delusional disorders (principal); F19.24 Other psychoactive substance dependence with psychoactive substance-induced mood disorder
CPT/HCPCS: 36415; 80048; 80143; 80179; 80306; 82077; 85025; 87635; 99284; 99285; Q3014; A9270

== ENCOUNTER 2024-05-22 22:20 | Outpatient (CLI) | payer OTHER, SELFPAY | END 2024-05-22 22:21 | disposition home or self-care (01) | LOC: AMB 05-23 15:57 | PROVIDERS: Visit Provider Family Medicine | DX: F22 Delusional disorders (principal); R44.1 Visual hallucinations; R44.0 Auditory hallucinations | CPT/HCPCS: A0425; A0428 ==